=== PATIENT | female | born 1960 | race Two or more races ===

== ENCOUNTER → 2022-05-03 09:45 | Outpatient (BNVA) | payer OTHER, SELFPAY | PROVIDERS: PCP Internal Medicine; Visit Provider Nurse Practitioner Family | DX: R51.0 Headache with orthostatic component, not elsewhere classified (principal); R25.1 Tremor, unspecified; I95.1 Orthostatic hypotension; R25.9 Unspecified abnormal involuntary movements | CPT/HCPCS: 99202 ==

== ENCOUNTER → 2022-08-23 12:21 | Outpatient (BNVA) | payer OTHER, SELFPAY | PROVIDERS: PCP Internal Medicine; Visit Provider Nurse Practitioner Family | DX: G47.9 Sleep disorder, unspecified (principal); G47.19 Other hypersomnia; R06.83 Snoring; R51.0 Headache with orthostatic component, not elsewhere classified; R51.9 Headache, unspecified; R25.1 Tremor, unspecified; R25.9 Unspecified abnormal involuntary movements | CPT/HCPCS: 99212 ==

== ENCOUNTER → 2022-10-10 14:39 | Outpatient (REF) | payer OTHER, SELFPAY | LOC: HO.SL 14:39 | PROVIDERS: PCP Internal Medicine; Visit Provider Nurse Practitioner Family | DX: G47.19 Other hypersomnia (principal); G47.9 Sleep disorder, unspecified; R06.83 Snoring | CPT/HCPCS: 95806 ==

== ENCOUNTER → 2022-11-26 14:02 | Outpatient (BNVA) | payer OTHER, SELFPAY | PROVIDERS: PCP Internal Medicine; Visit Provider Nurse Practitioner Family | DX: R06.83 Snoring (principal); G47.9 Sleep disorder, unspecified; G47.19 Other hypersomnia ==

== ENCOUNTER → 2022-12-27 13:14 | Outpatient (BNVA) | payer OTHER, SELFPAY | PROVIDERS: PCP Internal Medicine; Visit Provider Nurse Practitioner Family | DX: R06.83 Snoring (principal); G47.9 Sleep disorder, unspecified; G47.19 Other hypersomnia; R25.1 Tremor, unspecified; R51.9 Headache, unspecified; I95.1 Orthostatic hypotension; R25.9 Unspecified abnormal involuntary movements ==

== ENCOUNTER 2023-04-07 13:40 | Outpatient (AMB) | payer OTHER, SELFPAY ==
[2023-04-07 14:09] VITALS: BP 112/74; PULSE 67; O2SAT 96; BMI 23.0
--- NOTE | 2023-04-07 14:09 | MHC.OFFVIS ---
Intake Vital Signs 04/07/23 14:09 Height 5 ft 4 in Weight 134 lb BMI 23.0 BP 112/74 Blood Pressure Location Rt brachial Position Sitting Pulse 67 Pulse Source Pulse Oximeter Pulse Oximetry (%) 96 Oxygen Delivery Method Room Air Intake Visit Reasons: 4m f/u Headache/Parasthesia - Confirmed Intake Note: Patient presents for 4 month follow up headache. Patient states my headaches are terrible and I'm very dizzy. Allergies metoclopramide [From Reglan] Allergy (Verified 04/07/23 14:12) hyper activity prednisone Allergy (Verified 04/07/23 14:12) Joint Pain Medication List - Last Reconciled 04/07/23 by ISAI Santos ascorbate calcium (vitamin C) 500 mg PO DAILY jbfhzih-qfqqliwqhejat-wplfwmid 250-250-65 mg (Excedrin Migraine) 1 tab PO Q4-6H PRN bismuth subsalicylate (Pepto-Bismol) 524 mg PO QID calcium [id number] no.293 260 mg calcium- 25 mcg-50 mg (Alive Calcium-Vitamin D3) tabs PO carboxymethylcellulose sodium 1% (Refresh Celluvisc) 1 drp ophthalmic (eye) BID carboxymethylcellulose-glycern 0.5-0.9 % (Refresh Optive) 1 drp ophthalmic (eye) BID-QID PRN cetirizine 10 mg PO BEDTIME PRN 30 days cholecalciferol (vitamin D3) (Vitamin D3) 10 mcg PO DAILY citalopram 20 mg PO DAILY citalopram 10 mg PO DAILY clonazepam 1 mg PO TID PRN coenzyme Q10 (Co Q-10) 400 mg PO DAILY fludrocortisone 0.1 mg PO DAILY folic acid 1 mg PO DAILY gabapentin 300 mg PO TID ipratropium bromide 1 spray intranasal DAILY PRN levothyroxine 75 mcg PO DAILY lifitegrast 5% (Xiidra) 1 drp ophthalmic (eye) BID magnesium oxide 400 mg PO BEDTIME 30 days meclizine 25 mg PO BID PRN 14 days mecobalamin (vitamin B12) mcg PO omega 2-nex-evl-fish oil 60-90-500 mg (Fish Oil) 1 cap PO DAILY ondansetron HCl 4 - 8 mg (1 - 2 x 4 mg) PO Q6-8H PRN 30 days oxcarbazepine 75 mg PO BID polyethylene glycol 3350 (Miralax) 17 grams PO DAILY riboflavin (vitamin B2) 400 mg PO DAILY 30 days rosuvastatin 10 mg PO BEDTIME sodium chloride 1,000 mg PO TID trazodone 150 mg PO BEDTIME HPI HPI Comments History of Present Illness Details 62-yr-old female presents for f/u visit. Pt denies any significant interval medical changes. DaTscan showed borderline positive results. Pt continues to wake up with headache, dizziness, lightheadedness. She notes she has always been anxious, but she is more anxious overall. She is more shaky. She has started PT- feels this is helping to get her up and moving. She has been taking meclizine 25mg- 1/4 tab most days. She is compliant w/ Fludrocortisone and sodium tabs. She has been trying to reduce her trazodone- now at 100mg qhs. [facility] Medical History (Reviewed 12/27/22 @ 13:22 by Stephanie Merrill [facility]) Anemia Depression Headache High cholesterol Kidney disease Osteoporosis Pacemaker Sleep problem Thyroid disease Surgical History S/P placement of cardiac pacemaker H/O: hysterectomy Family History Father Heart disease Mother Anxiety Depression Brother Prostate cancer History of hip replacement Family/Other Cancer Social History Alcohol intake: never Patient Tobacco Use Status: Current everyday Tobacco user Review of Systems Const All systems reviewed & are unremarkable except as noted in HPI and below Physical Exam Vital Signs: Last Vital Signs Pulse 67 04/07/23 14:09 BP 112/74 04/07/23 14:09 Pulse Ox 96 04/07/23 14:09 Oxygen Delivery Method Room Air 04/07/23 14:09 BMI result Body Mass Index 23.0 Const General: cooperative and no acute distress Orientation/consciousness: patient oriented x3 HEENT Head: Yes normocephalic Resp Effort & Inspection: normal respiratory effort and able to speak in complete sentences Neuro Other: BUE rest tremor General: patient oriented x3 and CN's II-XI intact bilaterally Cognition (Neuro): normal cognition Motor exam (neuro): 5/5 motor strength present throughout Psych Appearance: grossly normal Mental Status: mental status grossly normal Speech and movement: Normal speech and movement present Affect: normal affect Attitude: cooperative Thought process: Normal thought process present Thought content: Normal thought content present Insight: Good insight present (Psych) Judgement: Good judgement present (Psych) Assessment & Plan Assessment & Plan (1) Headache: Code(s): R51.9 - Headache, unspecified (2) Tremor: Code(s): R25.1 - Tremor, unspecified (3) Orthostatic hypotension: Code(s): I95.1 - Orthostatic hypotension Plan Trial Amitriptyline 10mg qhs- in hopes this helps headaches, dizziness- and thus may imporve anxiety. Reduce trazodone to 75mg qhs. May continue Citalopram 30mg qam. Reviewed DaTscan- borderline positive test- possibly we have ordered DaTscan very early in a neurodegenertaive process- will monitor clinically. Continue fludrocortisone 0.1mg and sodium tabs- per cardiology. Continue Gabapentin- may be helping tremor- however may be exacerbating dizziness. Pt wonders about other tremor tx options- discussed that most tremor tx's can exacerbate OH/dizziness s/s (ie BBs, dopaminergic tx, primidone) and thus would avoid starting these at this point. Continue PT. f/u in 3 months or sooner prn. Medications: New amitriptyline 10 mg PO BEDTIME 30 days 30 tabs 3RF Coding Level of Care Code Est Pt Level 4 (36285) Diagnoses Headache R51.9 Tremor R25.1 Orthostatic hypotension I95.1
== END 2023-04-07 14:53 | disposition home or self-care (01) ==
PROVIDERS: PCP Internal Medicine; Visit Provider Nurse Practitioner Family
DX: R51.9 Headache, unspecified (principal); R25.1 Tremor, unspecified; I95.1 Orthostatic hypotension
CPT/HCPCS: 99214

== ENCOUNTER → 2023-04-07 13:40 | Outpatient (BNVA) | payer OTHER, SELFPAY | PROVIDERS: PCP Internal Medicine; Visit Provider Nurse Practitioner Family | DX: R06.83 Snoring (principal); G47.9 Sleep disorder, unspecified; G47.19 Other hypersomnia; R25.1 Tremor, unspecified; R51.9 Headache, unspecified; I95.1 Orthostatic hypotension; R25.9 Unspecified abnormal involuntary movements; R42 Dizziness and giddiness ==

== ENCOUNTER 2023-08-13 14:02 | Outpatient (AMB) | payer OTHER, SELFPAY ==
--- NOTE | 2023-08-13 14:43 | A.OFFVIS_ITS ---
Intake Vital Signs 08/13/23 14:45 Height 5 ft 4 in Weight 139 lb BMI 23.9 BP 130/82 Blood Pressure Location Rt brachial Position Sitting Pulse 82 Pulse Source Pulse Oximeter Pulse Oximetry (%) 98 Oxygen Delivery Method Room Air Intake Visit Reasons: 4m f/u Headache/Parasthesia - CONF Intake Note: Patient presnts for headaches. Maricruz been having worst symptoms,much worst. Allergies metoclopramide [From Reglan] Allergy (Verified 08/13/23 14:46) hyper activity prednisone Allergy (Verified 08/13/23 14:46) Joint Pain Medication List - Last Reconciled 08/13/23 by ISAI Santos amitriptyline 10 mg PO BEDTIME 30 days ascorbate calcium (vitamin C) 500 mg PO DAILY jqyvpek-yzzjhwmiemmec-zawpcxxd 250-250-65 mg (Excedrin Migraine) 1 tab PO Q4-6H PRN bismuth subsalicylate (Pepto-Bismol) 524 mg PO QID calcium [id number]-L9-yomqvl no.293 260 mg calcium- 25 mcg-50 mg (Alive Calcium- Vitamin D3) tabs PO carboxymethylcellulose sodium 1% (Refresh Celluvisc) 1 drp ophthalmic (eye) BID carboxymethylcellulose-glycern 0.5-0.9 % (Refresh Optive) 1 drp ophthalmic (eye) BID-QID PRN cetirizine 10 mg PO BEDTIME PRN 30 days cholecalciferol (vitamin D3) (Vitamin D3) 10 mcg PO DAILY citalopram 20 mg PO DAILY citalopram 10 mg PO DAILY clonazepam 1 mg PO TID PRN coenzyme Q10 (Co Q-10) 400 mg PO DAILY fludrocortisone 0.1 mg PO DAILY folic acid 1 mg PO DAILY gabapentin 300 mg PO TID ipratropium bromide 1 spray intranasal DAILY PRN levothyroxine 75 mcg PO DAILY lifitegrast 5% (Xiidra) 1 drp ophthalmic (eye) BID magnesium oxide 400 mg PO BEDTIME 30 days meclizine 25 mg PO BID PRN 30 days mecobalamin (vitamin B12) mcg PO omega 0-aez-gyr-fish oil 60-90-500 mg (Fish Oil) 1 cap PO DAILY ondansetron HCl 4 - 8 mg (1 - 2 x 4 mg) PO Q6-8H PRN 30 days oxcarbazepine 75 mg PO BID polyethylene glycol 3350 (Miralax) 17 grams PO DAILY riboflavin (vitamin B2) 400 mg PO DAILY 30 days rosuvastatin 10 mg PO BEDTIME sodium chloride 1,000 mg PO TID trazodone 150 mg PO BEDTIME HPI HPI Comments History of Present Illness Details 63-yr-old female presents for f/u visit. She continues to have recurrent episodes occurring once a month, and lasts a week. She awakes up dizzy, lightheadedness, difficulty moving her head, tremor, chest pain/SOB and anxiety, runny nose, depression/scared/frightened, fevers/flushed, head pressure, GI upset. Will be fatigued, and sleep for 12 hrs. She is taking meclizine 1/4 tab per day and zofran- using just prn. She is compliant w/ fludrocortisone 0.1mg qd and the sodium tabs 1 tab bid. She does have h/o Eustachian tube dysfunction- this started about 1 yr ago. She denies h/o migraine. Previous HST in October 2022, was inconclusive with AHI 2.3 and O2 [place] 83%. Patient has bought a home BP cuff, but does not know how to use it. Since the last visit, Pt was advised to have home PT to assess orthostatic BP- however pt did not agree. [facility] Medical History (Updated 08/13/23 @ 20:04 by ISAI Santos) Pacemaker Thyroid disease Sleep problem Osteoporosis Kidney disease High cholesterol Headache Depression Anemia Surgical History S/P placement of cardiac pacemaker H/O: hysterectomy Family History Father Heart disease Mother Anxiety Depression Brother Prostate cancer History of hip replacement Family/Other Cancer Social History Alcohol intake: never Patient Tobacco Use Status: Current everyday Tobacco user Physical Exam Vital Signs: Last Vital Signs Pulse 82 08/13/23 14:45 BP 130/82 08/13/23 14:45 Pulse Ox 98 08/13/23 14:45 Oxygen Delivery Method Room Air 08/13/23 14:45 BMI result Body Mass Index 23.9 Const General: cooperative and no acute distress Orientation/consciousness: patient oriented x3 Resp Effort & Inspection: normal respiratory effort and able to speak in complete sentences Neuro General: patient oriented x3 Cranial nerves: Yes CN's II-XII intact bilaterally Cognition (Neuro): normal cognition Psych Appearance: grossly normal Mental Status: mental status grossly normal Speech and movement: Normal speech and movement present Affect: normal affect Attitude: cooperative Assessment & Plan Assessment & Plan (1) Orthostatic hypotension: Code(s): I95.1 - Orthostatic hypotension (2) Sick sinus syndrome: Comment: Sick sinus syndrome due to SA node dysfunction (01/2022: S/P dual-chamber pacemaker implant) Code(s): I49.5 - Sick sinus syndrome (3) Excessive daytime sleepiness: Code(s): G47.19 - Other hypersomnia (4) Sleep difficulties: Code(s): G47.9 - Sleep disorder, unspecified (5) Snoring: Code(s): R06.83 - Snoring (6) Vertigo: Code(s): R42 - Dizziness and giddiness (7) Positional headache: Code(s): R51.0 - Headache with orthostatic component, not elsewhere classified (8) Tremor: Code(s): R25.1 - Tremor, unspecified (9) Abnormal involuntary movement: Comment: oral Code(s): R25.9 - Unspecified abnormal involuntary movements (10) Migraine without aura: Code(s): G43.009 - Migraine without aura, not intractable, without status migrainosus Plan For migraine headache prevention: Continue Amitriptyline 10mg qhs- would not increase further d/t polypharmacy. Start Ajovy 225mg sc q month. Tx contraindications: BBs d/t symptomatic orthostatic hypotension. For acute migraine headache treatment: Start Ubrelvy 100 mg tab p.r.n. at onset of migraine episode, may repeat x1. M ax of 200 mg per day. Acute treatment contraindications: All triptans due to history of sick sinus syndrome. ? Reviewed Jan 2023 DaTscan- borderline positive test- possibly we have ordered DaTscan very early in a neurodegenertaive process- will monitor clinically. Patient advised to undergo in-lab sleep study to assess for sleep apnea, periodic limb movements of sleep, parasomnias. Will request Nephrology consult for eval for 24 hour ABP monitoring. Question if there is a neurogenic come to her frequent orthostatic lightheadedness. Continue fludrocortisone 0.1mg and sodium tabs- per cardiology. Continue Gabapentin- may be helping tremor- however may be exacerbating dizziness. Future considerations: Doxydopa. Pt wonders about other tremor tx options- discussed that most tremor tx's can e xacerbate OH/dizziness s/s (ie BBs, dopaminergic tx, primidone) and thus would avoid starting these at this point. Continue PT. ? f/u in 3 months or sooner prn. Orders: Orders RT PSG in-lab sleep study Today G47.19 - Other hypersomnia, G47.9 - Sleep disorder, unspecified, R06.83 - Snoring, R25.1 - Tremor, unspecified, Z95.0 - Presence of cardiac pacemaker Referrals Nephrology Referral I49.5 - Sick sinus syndrome, I95.1 - Orthostatic hypotension Medications: New ubrogepant (Ubrelvy) take at onset of migraine, may repeat in 2hrs 50 - 100 mg (0.5 - 1 x 100 mg) PO ONCE PRN 16 tabs 3RF migraine headache 30 days fremanezumab-vfrm (Ajovy) administer 225mg sc q month 225 mg (1.5 mL) subcut ONCE 1.5 mL 6RF 30 days Coding Level of Care Code Est Pt Level 4 (40672) Diagnoses Orthostatic hypotension I95.1 Sick sinus syndrome I49.5 Excessive daytime sleepiness G47.19 Sleep difficulties G47.9 Snoring R06.83 Vertigo R42 Positional headache R51.0 Tremor R25.1 Abnormal involuntary movement R25.9 Migraine without aura G43.009
[2023-08-13 14:45] VITALS: BP 130/82; PULSE 82; O2SAT 98; BMI 23.9
== END 2023-08-13 15:36 | disposition home or self-care (01) ==
PROVIDERS: PCP Internal Medicine; Visit Provider Nurse Practitioner Family
DX: I95.1 Orthostatic hypotension (principal); I49.5 Sick sinus syndrome; G47.19 Other hypersomnia; G47.9 Sleep disorder, unspecified; R06.83 Snoring; R42 Dizziness and giddiness; R51.0 Headache with orthostatic component, not elsewhere classified; R25.1 Tremor, unspecified; R25.9 Unspecified abnormal involuntary movements; G43.009 Migraine without aura, not intractable, without status migrainosus
CPT/HCPCS: 99214

== ENCOUNTER → 2023-08-13 14:02 | Outpatient (BNVA) | payer OTHER, SELFPAY | PROVIDERS: PCP Internal Medicine; Visit Provider Nurse Practitioner Family | DX: R06.83 Snoring (principal); G47.9 Sleep disorder, unspecified; G47.19 Other hypersomnia; R25.1 Tremor, unspecified; R51.9 Headache, unspecified; I95.1 Orthostatic hypotension; R25.9 Unspecified abnormal involuntary movements; R42 Dizziness and giddiness ==

== ENCOUNTER → 2023-09-08 19:30 | Outpatient (REF) | payer OTHER, SELFPAY | LOC: HO.SL 19:30 | PROVIDERS: PCP Internal Medicine; Visit Provider Nurse Practitioner Family | DX: G47.19 Other hypersomnia (principal); R06.83 Snoring; R25.1 Tremor, unspecified; Z95.0 Presence of cardiac pacemaker; G47.9 Sleep disorder, unspecified | CPT/HCPCS: 95810 ==

== ENCOUNTER → 2023-09-08 23:56 | Outpatient (BNV) | payer OTHER, SELFPAY | PROVIDERS: PCP Internal Medicine; Visit Provider Psychiatry & Neurology Neurology | DX: R06.83 Snoring (principal) | CPT/HCPCS: 95810 ==

== ENCOUNTER 2023-11-04 13:55 | Outpatient (AMB) | payer OTHER, SELFPAY ==
[2023-11-04 14:34] VITALS: BP 100/60; PULSE 57; O2SAT 96; BMI 23.8
--- NOTE | 2023-11-04 14:34 | HO.NEPHOV ---
Vital Signs 11/04/23 14:34 Height 5 ft 4 in Weight 138 lb 8 oz BMI 23.8 BP 100/60 Blood Pressure Location Lt brachial Position Sitting Pulse 57 Pulse Source Pulse Oximeter Pulse Oximetry (%) 96 Oxygen Delivery Method Room Air Intake Visit Reasons: Dx-Orthastatic Hypotension ? 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 She is a very poor historian. She has been having tiredness for a long time with dizziness for which she has seen a associate store director as well as multiple physicians. She had a pacemaker insertion which has not helped her symptoms. She is on 1 g 3 times a day sodium chloride with the fludrocortisone for reasons unclear to patient. She apparently had tried midodrine in the past which has been discontinued, the reasons of which is unclear. She does not have any edema. She likes to be confined at home and does not like coming for appointments. Her mentation is at baseline. She has no history of hypoglycemia, hyperkalemia or recent hyponatremia. She has history of depression. She has history of mild CKD for some time with a serum creatinine of 1.1. She denies epistaxis, recurrent sinusitis, hemoptysis, hematuria, nephrolithiasis, dysuria, pedal edema. [facility] Medical History (Updated 11/04/23 @ 17:44 by Sterling Arana MD) Pacemaker Thyroid disease Sleep problem Osteoporosis Kidney disease High cholesterol Headache Depression Anemia Surgical History S/P placement of cardiac pacemaker H/O: hysterectomy Family History Father Heart disease Mother Anxiety Depression Brother Prostate cancer History of hip replacement Family/Other Cancer Social History Alcohol intake: never Patient Tobacco Use Status: Current everyday Tobacco user Physical Exam Vital Signs: Last Vital Signs Pulse 57 11/04/23 14:34 BP 130/78 11/04/23 14:34 Pulse Ox 96 11/04/23 14:34 Oxygen Delivery Method Room Air 11/04/23 14:34 BMI result Body Mass Index 23.8 Const General: comfortable and no acute distress Orientation/consciousness: patient oriented x3 Eyes EOM: EOMs intact bilaterally Neck Neck: Yes supple Resp Auscultation: diminished lung sounds Cardio Jugular venous distension: no JVD GI Palpation (GI): Soft to palpation Skin General skin exam: no rashes or lesions noted Neuro General: patient oriented x3 and moves all extremities Extrem General: Yes no pedal edema Results Reviewed Nephrology Results: No Data to Display Assessment & Plan Assessment & Plan (1) Orthostatic hypotension: Code(s): I95.1 - Orthostatic hypotension Category: Medical (2) CKD stage 3a, GFR 45-59 ml/min: Code(s): N18.31 - Chronic kidney disease, stage 3a Category: Medical Plan Alicia has mild CKD for some time. Her renal functions are stable. She most likely had reduced renal perfusion due to low blood pressures with recurrent tubular injury which might have led to loss of GFR. She had a blood pressure 100/60 sitting with a no orthostatic drop in the office today. She is currently on fludrocortisone and sodium chloride tablets. She is not clinically hypervolemic. She is not sure why she is on sodium chloride tablets and fludrocortisone but I presume it was given for orthostatic hypotension, unless the salt tablets were given for history of hyponatremia which I could not make out nor patient was aware. We could have considered starting and maximizing midodrine and Florinef with time and discontinue sodium chloride tablets unless it is given for any other different indication. She was very clear that she does not want too many physicians investigating her for this and she was very clear that she does not want 24 hour ambulatory blood pressure monitor. I did not make any medication changes but rather encouraged her to follow-up closely with neurology and her PCP. Thank you for the opportunity to be part of her clinical care Coding Level of Care Code New Pt Level 4 (66858) Diagnoses Orthostatic hypotension I95.1 CKD stage 3a, GFR 45-59 ml/min N18.31
== END 2023-11-04 15:12 | disposition home or self-care (01) ==
PROVIDERS: PCP Internal Medicine; Visit Provider Internal Medicine Nephrology
DX: I95.1 Orthostatic hypotension (principal); N18.31 Chronic kidney disease, stage 3a
CPT/HCPCS: 99204

== ENCOUNTER → 2023-11-04 13:55 | Outpatient (BNVA) | payer OTHER, SELFPAY | PROVIDERS: PCP Internal Medicine; Visit Provider Internal Medicine Nephrology ==

== ENCOUNTER 2023-11-19 14:37 | Outpatient (AMB) | payer OTHER, SELFPAY ==
--- NOTE | 2023-11-19 14:57 | MHC.OFFVIS ---
Vital Signs 11/19/23 14:59 Height 5 ft 4 in Weight 138 lb BMI 23.7 BP 110/74 Blood Pressure Location Rt brachial Position Sitting Pulse 67 Pulse Source Pulse Oximeter Pulse Oximetry (%) 98 Oxygen Delivery Method Room Air Intake Visit Reasons: 3m follow up Headache/Parasthesia-Conf Intake Note: Patient presents for 3 month follow up headache/parasthesia. patient still having terrible dizziness and headaches,nausea and hand shakes feeling weak and difficulty breathing. Allergies metoclopramide [From Reglan] Allergy (Verified 11/19/23 15:08) hyper activity prednisone Allergy (Verified 11/19/23 15:08) Joint Pain Medication List - Last Reconciled 11/19/23 by ISAI Santos ascorbate calcium (vitamin C) 500 mg PO DAILY momenna-kwoobxlccchho-betygnoa 250-250-65 mg (Excedrin Migraine) 1 tab PO Q4-6H PRN calcium gmqe-X1-vnfphd no.293 260 mg calcium- 25 mcg-50 mg (Alive Calcium-Vitamin D3) tabs PO cholecalciferol (vitamin D3) (Vitamin D3) 10 mcg PO DAILY citalopram 30 mg PO DAILY clonazepam 1 mg PO TID PRN coenzyme Q10 (Co Q-10) 400 mg PO DAILY fludrocortisone 0.1 mg PO DAILY folic acid 1 mg PO DAILY fremanezumab-vfrm (Ajovy) 225 mg (1.5 mL) subcut ONCE 30 days gabapentin 300 mg PO TID levothyroxine 75 mcg PO DAILY lifitegrast 5% (Xiidra) 1 drp ophthalmic (eye) BID meclizine 25 mg PO BID PRN 30 days mecobalamin (vitamin B12) mcg PO omega 5-hvz-ych-fish oil 60-90-500 mg (Fish Oil) 1 cap PO DAILY ondansetron HCl 4 - 8 mg (1 - 2 x 4 mg) PO Q6-8H PRN 30 days oxcarbazepine 75 mg PO BID riboflavin (vitamin B2) 400 mg PO DAILY 30 days rosuvastatin 10 mg PO BEDTIME sodium chloride 1,000 mg PO TID trazodone 100 mg PO BID ubrogepant (Ubrelvy) 50 - 100 mg (0.5 - 1 x 100 mg) PO ONCE PRN 30 days HPI Comments Details: 63-yr-old female presents for f/u visit. Pt had renal consult, however she declined to do 24 hr BP monitor. She states she is not taking Fludrocortisone consistently- feels it makes her tremors worse. She continues to have BUE tremor. Would like to start tx for her tremors. States is compliant w/ sodium tabs- does not think these worsen/cause nausea. However, she often feels nauseous. She has an appt w/ a new refining engineer tomorrow. In-lab PSG did not show sleep apnea- but pt did not sleep well during the study. She continues to lay down and sleep x's 12 hours a day. She continues to have frequent migraine. She stopped Amitriptyline- states did not tolerate, maybe it caused more anxiety. She has not started Ajovy- has been approved but [facility] did not have it in stock. Will resend. She feels her mood is depressed. She often sits on the floor- anxious and crying. She is f/b psychiatry. [facility] Medical History (Updated 11/04/23 @ 17:44 by Sterling Arana MD) Pacemaker Thyroid disease Sleep problem Osteoporosis Kidney disease High cholesterol Headache Depression Anemia Surgical History S/P placement of cardiac pacemaker H/O: hysterectomy Family History Father Heart disease Mother Anxiety Depression Brother Prostate cancer History of hip replacement Family/Other Cancer Social History Alcohol intake: never Patient Tobacco Use Status: Current everyday Tobacco user Physical Exam Vital Signs: Last Vital Signs Pulse 67 11/19/23 14:59 BP 110/74 11/19/23 14:59 Pulse Ox 98 11/19/23 14:59 Oxygen Delivery Method Room Air 11/19/23 14:59 BMI result Body Mass Index 23.7 Const General: cooperative and no acute distress Orientation/consciousness: patient oriented x3 Resp Effort & Inspection: normal respiratory effort and able to speak in complete sentences Neuro Other: RUE rest tremor. General: patient oriented x3 Cranial nerves: Yes CN's II-XII intact bilaterally Cognition (Neuro): normal cognition Psych Appearance: grossly normal Mental Status: mental status grossly normal Affect: normal affect Attitude: cooperative Assessment & Plan Assessment & Plan (1) Migraine without aura: Code(s): G43.009 - Migraine without aura, not intractable, without status migrainosus Category: Medical (2) Orthostatic hypotension: Code(s): I95.1 - Orthostatic hypotension Category: Medical (3) Tremor: Code(s): R25.1 - Tremor, unspecified Category: Medical Plan For tremor: Reviewed Jan 2023 DaTscan- borderline positive test- possibly we have ordered DaTscan very early in a neurodegenertaive process- will monitor clinically. Reviewed undergo in-lab sleep study- no evidence for sleep apnea, though poor sleep. Reviewed Nephrology consult- pt declined 24 hr BP monitor. Continue sodium tabs- per cardiology. Pt not consistently taking Fludrocortisone- states worsens tremors. Previously tried Midodrine- states was not tolertaed. Gabapnentin does not seem to be helping tremor. Pt would like to start medication tx for tremor. Discussed that most tremor tx's can exacerbate OH/dizziness s/s (ie BBs, dopaminergic tx, primidone) and thus would avoid starting these at this point. Review of pt's cardiology notes/records indicates last tilt table test showed OH w/o compnsatory HR elvation, which raises suspicion for neurogenic OH component to pt's OH. We can consider trying Droxidopa 100mg tid and CD-LD 25-100mg 1/2 tab bid. However, would appreciate cardiology's input before starting this. Note written to share w/ refining engineer tomorrow. For migraine headache prevention: Pt stopped Amitriptyline 10mg qhs. Start Ajovy 225mg sc q month- has been approved- order resent to pharmacy. Previous tx trials: Amitriptyline- pt states caused anxiety. Tx contraindications: BBs d/t symptomatic orthostatic hypotension. ? For acute migraine headache treatment: Will f/u on status of prior auth for Ubrelvy 100 mg tab p.r.n. at onset of migraine episode, may repeat x1. Max of 200 mg per day. Acute treatment contraindications: All triptans due to history of sick sinus syndrome. ? ? f/u in 3 months or sooner prn. Coding Level of Care Code Est Pt Level 4 (58787) Complex EM visit Add On G2211 Diagnoses Migraine without aura G43.009 Orthostatic hypotension I95.1 Tremor R25.1
[2023-11-19 14:59] VITALS: BP 110/74; PULSE 67; O2SAT 98; BMI 23.7
== END 2023-11-19 16:09 | disposition home or self-care (01) ==
PROVIDERS: PCP Internal Medicine; Visit Provider Nurse Practitioner Family
DX: G43.009 Migraine without aura, not intractable, without status migrainosus (principal); I95.1 Orthostatic hypotension; R25.1 Tremor, unspecified
CPT/HCPCS: 99214; G2211

== ENCOUNTER → 2023-11-19 14:37 | Outpatient (BNVA) | payer OTHER, SELFPAY | PROVIDERS: PCP Internal Medicine; Visit Provider Nurse Practitioner Family | DX: R06.83 Snoring (principal); G47.9 Sleep disorder, unspecified; G47.19 Other hypersomnia; R25.1 Tremor, unspecified; R51.9 Headache, unspecified; I95.1 Orthostatic hypotension; R25.9 Unspecified abnormal involuntary movements; R42 Dizziness and giddiness ==

== ENCOUNTER 2024-11-08 14:38 | Outpatient (AMB) | payer MEDICAID, SELFPAY ==
--- OUTSIDE RECORDS SUMMARY | 2024-11-08 14:41 | XMS_ITS | Data Portability ---
Author Organization FATOU Berry s, [address] Address [address] [place] [address] Care Team Providers Care Breaker Machine Tender Name Role Phone [facility] Primary Care Pr ovider Assessment No assessment recorded. Plan of Treatment Reminders Order Date Submit Date Provider Last Modified By Organization Details Last Modified Time Details Appointments None recorded. Lab SARS CoV 2 RNA (COVID-19), QL, cloth bolt bander-PCR, respiratory specimen 2022 023 KISSIMMEE [facility], [address] [place] [address], [place], [address], 3 18:05:52 urinalysis, dipstick 2022 023 [address], [address] [place], [address], 3 18:58:06 SARS CoV 2 (COVID-19) Ag, QL, IA, upper respiratory specimen 2022 023 [address], [address] [place], [address], 3 18:58:08 rapid flu (A+B) 2022 023 [email or web address] [address], [address] [place], [address], 3 19:06:24 culture, urine 2022 023 KISSIMMEE [facility] ([place]), [address] [facility], [place], [address], 3 06:06:22 Referral None recorded. Procedures None recorded. Surgeries None recorded. Imaging None recorded. Medication Orders cephalexin 500 mg capsule 2023 024 KISSIMMEE [id number], [address] [place] [address], [id number], 4 09:38:15 Florastor 250 mg capsule 2022 023 [email or web address] 2 [facility] #[id number], [address] [place] [address], [address], 4 09:14:37 Imodium Multi-Sympt om Relief 2 mg-125 mg tablet 2022 023 [id number] [address] [place] [address], [address], 4 09:16:25 ondansetron 4 mg disintegrat ing tablet 2022 023 [id number] [address] [place] [address], [address], 3 18:58:08 Patient TargetsNo targets recorded. Patient Instructions Encounter Date Encounter Id Patient Instructions Last Modified By Organization Details Last Modified Time 05/09/2023 [id number] diarrhea: care instructions [email or web address] Not available 05/09/2023 18:58:03 bland diet [email or web address] Not available 05/09 18:58:03 diarrhea: care instructions Not available 05/09/2023 18:58:03 Based on your presentation and exam you are being diagnosed with Diarrhea. Diarrhea can be caused by multiple things - virus, bacterial, exposure to food that is not tolerated. Diarrhea caused by infections usually results from eating or drinking contaminated food or water. Signs and symptoms of infection usually begin 12 hours to four days after exposure and resolve within three to seven days. Most cases of acute diarrhea are due to infections and are self-limited. Acute ? 14 days or fewer in duration Persistent diarrhea ? more than 14 but fewer than 30 days in duration Chronic ? more than 30 days in duration Diarrhea not related to an infection can occur as a side effect of antibiotics or other drugs, food allergies, gastrointestinal diseases such as inflammatory bowel disease, and other diseases. The following are my recommendations to help with your symptoms: 1. Drink adequate fluids ? If you have mild to moderate diarrhea, you can usually be treated at home by drinking extra fluids. The fluids should contain water, salt, and sugar. Avoid Gatorade however, but Pedialyte is ok. 2. Diet ? There is no particular food or group of foods that is best while you have diarrhea. However, adequate nutrition is important during an episode of acute diarrhea. If you do not have an appetite, you can drink only liquids for a short period of time. Boiled starches and cereals (eg, potatoes, noodles, rice, wheat, and oats) with salt are recommended if you have watery diarrhea; crackers, bananas, soup, and boiled vegetables may also be eaten. 3. Preventing spread ? Adults with diarrhea should be cautious to avoid spreading infection to family, friends, and co-workers. You are considered infectious for as long as diarrhea continues. Microorganisms causing diarrhea are spread from hand to mouth. 4. Frequent Hand Washing Antibiotics are not needed in most cases of acute diarrhea, and they can cause further complications if used inappropriately. Antibiotics may be recommended in certain situations. If diarrhea continues - Stool Culture would be indicated. You need to be seen again if you develop any of the following and the ER may be needed for IV fluids. 1. More than eight loose stools per day lasting longer than 5 days. 2. Fever 3. Bloody stool 4. Dehydration 5. Symptoms that continue for more than one week 6. A weakened immune system 7. You require hospitalization Thank you for using [facility] today, Please feel free to contact our office if you have any questions or concerns. [email or web address] Not available 05/09/2023 18:58:45 05/13/2023 [id number] diarrhea: care instructions [email or web address] Not available 05/13/2023 17:17:31 viral infections : care instructions [email or web address] Not available 05/13/2023 17:17:31 Since your diarr hea is improving - no change in your current treatment is indicated. Rest. Drink plenty of fluids. See printed instructions. Follow-up as soon as possible with your doctor. You will be contacted when your lab report returns. Seek Emergency Medical evaluation for any worsening symptoms, particularly for any worsening pain, intractable vomiting, blood in stool, high fever, shaking chills, chest pain, shortness of breath. [email or web address] Not available 05/14/2023 20:14:47 04/30/2024 [id number] cellulitis: care instructions [email or web address] Not available 04/30/2024 09:38:06 Reason for Referral None Reported. Results Created Date Observation Date Name Description Value Unit Range Abnormal Flag Note LastModifiedBy Organization Detail LastModifiedTime 05/09/2005/12/2023 URINE CULTU RE, BILLI NE urine culture, routine FINAL REPORT Not Available [facility] ([facility]) [address] [facility], [place], [address], 05/12/2023 06:06:22 05/09/2005/12/2023 URINE CULTU RE, BILLI NE result 1 COMMEN T Cultu re shows less than 10,00 0 colon y formi ng units of bacte mirtha per jon liter of urine . This colon y count is not gener ally consi dered to be clini jose signi fican t. Not Available [facility] ([facility]) [address] [facility], [place], [address], 05/12/2023 06:06:22 05/09/2005/09/2023 rapid flu (A+B) Unknown Analyte negati ve Not Available [address] [place], [address], 05/09/2023 18:50:34 05/09/20 23 05/09/2023 rapid flu (A+B) Unknown Analyte negati ve Not Available [address] [place], [address], 05/09/2023 18:50:34 05/09/2005/09/2023 urina lysis , dipst ick Unknown Analyte Normal = light yellow Not Available [address] [place], [address], 05/09/2023 18:25:41 05/09/2005/09/2023 urina lysis , dipst ick Unknown Analyte Yellow Not Available [id number] [place] [address] [address] [place], [address], 05/09/2023 18:25:41 05/09/2005/09/2023 urina lysis , dipst ick Unknown Analyte Normal = clear Not Available [address] [place], [address], 05/09/2023 18:25:41 05/09/2005/09/2023 urina lysis , dipst ick Unknown Analyte Clear Not Available [id number] [place] [address] [address] [place], [address], 05/09/2023 18:25:41 05/09/2005/09/2023 urina lysis , dipst ick Unknown Analyte Normal = negati ve Not Available [address] [place], [address], 05/09/2023 18:25:41 05/09/2005/09/2023 urina lysis , dipst ick Unknown Analyte Negati ve Not Available [address] [place], [address], 05/09/2023 18:25:41 05/09/2005/09/2023 urina lysis , dipst ick Unknown Analyte Normal = Negati ve Not Available [address] [place], [address], 05/09/2023 18:25:41 05/09/2005/09/2023 urina lysis , dipst ick Unknown Analyte Negati ve Not Available [address] [place], [address], 05/09/2023 18:25:41 05/09/2005/09/2023 urina lysis , dipst ick Unknown Analyte Normal = Negati ve Not Available [address] [place], [address], 05/09/2023 18:25:41 05/09/2005/09/2023 urina lysis , dipst ick Unknown Analyte Negati ve Not Available [address] [place], [address], 05/09/2023 18:25:41 05/09/2005/09/2023 urina lysis , dipst ick Unknown Analyte Normal = 1.010, 1.015, 1.020 Not Available [address] [place], [address], 05/09/2023 18:25:41 05/09/2005/09/2023 urina lysis , dipst ick Unknown Analyte <=1.00 5 Not Available [address] [place], [address], 05/09/2023 18:25:41 05/09/2005/09/2023 urina lysis , dipst ick Unknown Analyte Normal = Negati ve Not Available [address] [place], [address], 05/09/2023 18:25:41 05/09/20 23 05/09/2023 urina lysis , dipst ick Unknown Analyte Trace- intact Not Available [address] [place], [address], 05/09/2023 18:25:41 05/09/2005/09/2023 urina lysis , dipst ick Unknown Analyte Normal = 6.5, 7.0, 7.5, 8.0 Not Available [address] [place], [address], 05/09/2023 18:25:41 05/09/2005/09/2023 urina lysis , dipst ick Unknown Analyte 6.0 Not Available [facility] [address] [place], [address], 05/09/2023 18:25:41 05/09/2005/09/2023 urina lysis , dipst ick Unknown Analyte Normal = Negati ve Not Available [address] [place], [address], 05/09/2023 18:25:41 05/09/2005/09/2023 urina lysis , dipst ick Unknown Analyte Negati ve Not Available [address] [place], [address], 05/09/2023 18:25:41 05/09/2005/09/2023 urina lysis , dipst ick Unknown Analyte Normal = 0.2, 1.0 Not Available [address] [place], [address], 05/09/2023 18:25:41 05/09/2005/09/2023 urina lysis , dipst ick Unknown Analyte 0.2 E.U./d L Not Available [address] [place], [address], 05/09/2023 18:25:41 05/09/2005/09/2023 urina lysis , dipst ick Unknown Analyte Normal = Negati ve Not Available [address] [place], [address], 05/09/2023 18:25:41 05/09/20 23 05/09/2023 urina lysis , dipst ick Unknown Analyte Negati ve Not Available [address] [place], [address], 05/09/2023 18:25:41 05/09/2005/09/2023 urina lysis , dipst ick Unknown Analyte Normal = Negati ve Not Available [address] [place], [address], 05/09/2023 18:25:41 05/09/2005/09/2023 urina lysis , dipst ick Unknown Analyte Negati ve Not Available [address] [place], [address], 05/09/2023 18:25:41 05/09/20 23 05/09/2023 SARS CoV 2 (COVI D-19) Ag, QL, IA, upper respi rator y speci men Unknown Analyte negati ve Not Available [address] [place], [address], 05/09/2023 18:25:52 05/13/20 23 05/14/2023 SARS- COV-2 , TRAMAINE sars-cov-2, TRAMAINE NOT DETECT ED not detect ed This nucle ic acid ampli ficat ion test was devel oped and its perfo rmanc e nabor cteri stics deter mined by [facility]. Nucle ic acid ampli ficat ion tests inclu de RT-PC R and TMA. This test has not been FDA clear ed or appro mario. This test has been autho rized by FDA under an Emerg ency Use Autho rizat ion (EUA) . This test is only autho rized for the durat ion of time the decla ratio n that circu mstan baltazar exist justi fying the autho rizat ion of the emerg ency use of in vitro diagn ostic tests for detec tion of SARS- CoV-2 virus and/o r diagn osis of COVID -19 infec tion under secti on 564(b )(1) of the Act, 21 U.S.C . 360bb b-3(b ) (1), unles s the autho rizat ion is termi nated or revok ed soone r. When diagn ostic testi ng is negat сергей, the possi bilit y of a false negat сергей resul t shoul d be consi dered in the dusty xt of a patie nt's recen t expos ures and the prese nce of clini marlo signs and sympt oms consi stent with COVID -19. An indiv idual witho ut sympt oms of COVID -19 and who is not kellie ing SARS- CoV-2 virus would expec t to have a negat сергей (not detec laurel) resul t in this assay . Not Available [facility]) [address] [facility], [place], [address], 05/14/2023 18:05:52 Result Notes None recorded. Problems Name Problem SNOMED Code Status Onset Date Resolution Date Notes Provider Name and Address Organization Details Recorded Time Lactose factor 06735405 Active 2022 Kate hamm, PA - [facility] 18:31:17 Anxiety 87123122 Active 2022 Kate hamm, PA - [facility] 18:31:30 Osteoporosis 57427326 Active 2022 Kate hamm, PA - [facility] 18:31:47 Depressive disorder 78734203 Active 2022 Kate hamm, PA - [facility] 18:31:57 Irritable bowel syndrome 39526282 Active 2022 Kate hamm, PA - [facility] 3 18:32:12 Kidney disease 22467343 Active 2022 Kate hamm, PA - [facility] 3 18:32:24 Hypothyroidism 20311471 Active 2022 Kate hamm, PA - [facility] 3 18:32:44 Arthritis 5928956 Active 2022 Kate hamm, PA - [facility] 3 18:33:14 Hyperlipidemia 09751134 Active 2022 Kate hamm, PA - [facility] 3 18:33:27 Problem Notes None recorded. Procedures Surgical History Date Name Laterality Status Provider Name and Address Organization Details Recorded Time 10/22/19 implantation of cardiac pacemaker franklyn Dhillon PA - [facility] 04/30/2024 09:18:53 Imaging Results None recorded. Procedure Notes None recorded. Medical Equipment None Reported. Allergies Allergen ID Allergen Name Allergen Category Reaction Reaction Severity Criticality Documentation Date Start Date Code Code System Note Provider Name and Address Organization Details Recorded Time 104367 Reglan medicatio n other Not available Not available 05/09/2023 9230 RxNorm Hyper Yeni hamm, PA - [facility] 4 09:14:02 259443 prednison e medicatio n myalgias (muscle pain) Not available Not available 05/09/2023 8640 RxNorm Kate hamm, PA - [facility] 3 18:24:27 Medications Name Sig Start Date Stop Date Status Note LastModified by Organization Details LastModified Time magnesium oxide 400 (240 mg) mg tabs active Not Available Not Available Not Available oxcarbazepi ne 150 mg tablet TAKE 1/2 TABLET TWICE A DAY BY MOUTH active Not Available Not Available No t Available cetirizine 10 mg tablet TAKE 1 TABLET BY MOUTH BEDTIME NEEDED FOR ALLERGY SYMPTOMS 05/09 completed Not Available Not Available Not Available citalopram 10 mg tablet TAKE 1 TABLET BY MOUTH ONCE A DAY FOR TOTAL DOSE OF 30MG DAILY active Not Available Not Available No t Available ondansetron HCl 4 mg tablet TAKE 1 TO 2 TABLETS BY MOUTH EVERY 6 TO 8 HOURS NEEDED FOR NAUSEA AND VOMITING FOR 30 DAYS 05/09 completed Not Available Not Available Not Available clonazepam 1 mg tablet TAKE 1 TABLET BY MOUTH THREE TIMES A DAY NEEDED active Not Available Not Available No t Available levothyroxi ne 75 mcg tablet TAKE 1 TABLET BY MOUTH EVERY DAY active Not Available Not Available No t Available citalopram 20 mg tablet TAKE 1 TABLET BY MOUTH EVERY DAY active Not Available Not Available No t Available magnesium oxide 400 mg (241.3 mg magnesium) tablet TAKE 1 TABLET BY MOUTH AT BEDTIME FOR 30 DAYS MAY HOLD FOR LOOSE STOOLS 05/09 completed Not Available Not Available Not Available trazodone 100 mg tablet TAKE 1 TO 2 TABLETS BY MOUTH AT BEDTIME 05/09 completed Not Available Not Available Not Available amitriptyli ne 10 mg tablet TAKE 1 TABLET BY MOUTH EVERYDAY AT BEDTIME 05/09 completed Not Available Not Available Not Available meclizine 25 mg tablet TAKE 1 TABLET BY MOUTH 2 TIMES A DAY NEEDED FOR DIZZINESS FOR 14 DAYS active Not Available Not Available No t Available cephalexin 500 mg capsule Take 1 capsule every 12 hours by oral route for 10 days. 2023 active Not Available Not Available Not Avai lable gabapentin 300 mg capsule TAKE 1 CAPSULE BY MOUTH THREE TIMES A DAY active Not Available Not Available No t Available ondansetron 4 mg disintegrat ing tablet PLACE 1 TABLET ON THE TONGUE AND ALLOW TO DISSOLVE EVERY 6-8 HOURS NEEDED active Not Available Not Available No t Available fludrocorti sone 0.1 mg tablet TAKE 1 TABLET BY MOUTH EVERY DAY 05/09 completed Not Available Not Available Not Available ipratropium bromide 21 mcg (0.03 %) nasal spray USE 1 SPRAY INTO EACH NOSTRIL DAILY AT BEDTIME NEEDED FOR EAR CONGSTION 05/09 completed Not Available Not Available Not Available rosuvastati n 10 mg tablet TAKE 1 TABLET BY MOUTH EVERYDAY AT BEDTIME active Not Available Not Available No t Available Florastor 250 mg capsule Take 1 capsule twice a day by oral route for 14 days. 04/30 completed Not Available Not Available Not Available sodium chloride 1,000 mg soluble tablet TAKE 1 TABLET BY MOUTH THREE TIMES DAILY active Not Available Not Available No t Available Imodium Multi-Sympt om Relief 2 mg-125 mg tablet 2 tabs by mouth x 1, then 1 tab by mouth after each loose stool; Max: 4 tabs per day. 04/30 completed Not Available Not Available Not Available riboflavin (vitamin B2) 400 mg tablet TAKE 1 TABLET BY MOUTH EVERY DAY active Not Available Not Available No t Available Xiidra 5 % eye drops in a dropperette INSTILL 1 DROP INTO BOTH EYES TWICE A DAY active Not Available Not Available No t Available Vitals Date Recorded Body height Body mass index (BMI) Body weight Oxygen saturation Oxygen saturation in Arterial blood by Pulse oximetry Heart rate Respiratory rate Body temperature Systolic blood pressure Diastolic blood pressure Provider Name and Address Organization Details Last Updated DateTime 3 162.56 cm 22.7 kg/m2 51235.1 9 g 97 % 97 % 61 /min 19 /min 97.4 [degF] 118 mm[Hg] 63 mm[Hg] Kate Spears PA - [facility] 3 18:26:19 Date Recorded Body height Body mass index (BMI) Body weight Body temperature Heart rate Respiratory rate Oxygen saturation Oxygen saturation in Arterial blood by Pulse oximetry Systolic blood pressure Diastolic blood pressure Provider Name and Address Organization Details Last Updated DateTime 3 162.56 cm 22.7 kg/m2 37569.1 9 g 97.8 [degF] 50 /min 16 /min 98 % 98 % 126 mm[Hg] 72 mm[Hg] Gretchen Buenrostro PA - [facility] 3 16:38:26 Date Recorded Body height Body mass index (BMI) Body weight Body temperature Heart rate Oxygen saturation Oxygen saturation in Arterial blood by Pulse oximetry Respiratory rate Systolic blood pressure Diastolic blood pressure Provider Name and Address Organization Details Last Updated DateTime 4 162.56 cm 23.2 kg/m2 70288.9 7 g 98.1 [degF] 51 /min 97 % 97 % 16 /min 102 mm[Hg] 53 mm[Hg] Yeni Dhillon PA - [facility] 4 09:23:55 Social History Question Answer Notes LastModified by Organizat ion Details LastModified Time Tobacco Smoking Status Current Every Day Smoker Kate hamm PA - [facility] 05/09/2023 18:34:53 What Is The Highest Grade Or Level Of School You Have Completed Or The Highest Degree You Have Received? [id number] [email or web address] Information not available 05/09/2023 Have You Had A Flu Shot This Season? No [email or web address] Information not available 04/30/2024 If No, Would You Like A Flu Shot Today? No Information not available 05/09/2023 Have You Had Direct Contact, Or Contact During Intimacy, With Monkeypox Rash, Scabs, Or Body Fluids From A Person With Monkeypox? No Information not available 05/09/2023 What Was The Date Of Your Most Recent Tobacco Screening? 04/30/2024 [email or web address] Information not available 04/30/2024 What Is Your Current Pack Years? [email or web address] Information not available 05/09/2023 What Is Your Relationship Status? [email or web address] Information not available 05/09/2023 How Much Tobacco Do You Smoke? 1 PPW [email or web address] Information not available 05/09/2023 Have You Recently Traveled Abroad? No [email or web address] Information not available 05/09/2023 Are You Currently In School? No [email or web address] Information not available 05/09/2023 Sex: Unknown Functional Status Question Answer Note LastModified by Organizat ion Details LastModified Time Do you use any illicit or recreational drugs? No [email or web address] Information not available 05/09/2023 Do you or have you ever used any other forms of tobacco or nicotine? No [email or web address] Information not available 05/09/2023 What is your level of alcohol consumption? None [email or web address] Information not available 05/09/2023 Are you currently employed? No Information not available 05/09/2023 Mental Status None recorded. Family History Relationship Description Onset Age of this Age Resolved Age Notes LastModified by Organization Details LastModified Time Father No current problems or disability [email or web address] Not available 05/09 18:33:46 Mother No current problems or disability [email or web address] Not available 05/09 18:33:46 Medical History No medical history recorded. Gynecological History Statement/Question Response Is there any chance of ? No LMP N/A Obstetrics History GPAL:G 0 P 0 0 0 0 Immunizations Vaccine Type Date Status Note Provider Nam e and Address Organization Details Recorded Time Influenza, MDCK, quadrivalent, PF 8 completed Kate Psears null, PA - [facility] 05/09/2023 18:22:37 Influenza, MDCK, quadrivalent, PF 7 completed Kate Spears null, PA - [facility] 05/09/2023 18:22:37 zoster recombinant 1 completed Kate Spears null, PA - [facility] 05/09/2023 18:22:37 zoster recombinant 1 completed Kate Spears null, PA - [facility] 05/09/2023 18:22:37 COVID-19, mRNA, LNP-S, PF, 100 mcg/0.5mL dose or 50 mcg/0.25mL dose 1 completed Kate Spears null, PA - [facility] 05/09/2023 18:22:37 COVID-19, mRNA, LNP-S, PF, 100 mcg/0.5mL dose or 50 mcg/0.25mL dose 1 completed Kate Spears null, PA - [facility] 05/09/2023 18:22:37 COVID-19, mRNA, LNP-S, PF, 100 mcg/0.5mL dose or 50 mcg/0.25mL dose 1 completed Kate Spears null, PA - [facility] 05/09/2023 18:22:37 Influenza, split virus, trivalent, preservative 2 completed Kate Spears null, PA - [facility] 05/09/2023 18:22:37 Influenza, split virus, quadrivalent, PF 0 completed Kate Spears null, PA - [facility] 05/09/2023 18:22:37 Influenza, split virus, quadrivalent, PF 9 completed Kate Spears null, PA - [facility] 05/09/2023 18:22:37 Influenza, split virus, quadrivalent, PF 1 completed Kate Spears null, PA - [facility] 05/09/2023 18:22:37 RSV, recombinant, protein subunit RSVpreF, adjuvant reconstituted, 0.5 mL, PF 3 completed FATOU Amado [facility] 04/30/2024 09:23:59 COVID-19, mRNA, LNP-S, PF, 50 mcg/0.5 mL 3 completed FATOU Amado [facility] 04/30/2024 09:23:59 Past Encounters Encounter ID Performer Location Encounter Start Date Encounter Closed Date Diagnosis/Indication Diagnosis SNOMED-CT Code Diagnosis ICD10 Code Diagnosis Note [id number] [address] [facility] [address] [place] [address] 02/18/2017 18:20:24 02/18/2017 18:59:56 [id number] FATOU PANDYA [facility] [address] [place] [address] 05/09/2023 17:15:06 05/09/2023 19:13:41 Increased frequency of urination 195780185 R35.0 Diarrhea 84898364 R19.7 Nausea 080736830 R11.0 Upper resp iratory infection 89666877 J06.9 [id number] Maria Victoria Palmer MD [facility] [address] [place] [address] 05/13/2023 15:23:04 05/13/2023 17:19:07 Diarrhea 08805050 R19.7 Viral syndrome 521674360 B34.9 [id number] Cricket Morrow DO [facility] [address] [place] [address] 04/30/2024 08:56:55 04/30/2024 09:40:31 Cellulitis 425437117 L03.90 PE consistent with Cellulitis will Rx antibiotic sTake your antibiotic with food. Eat a yogurt daily or take a probiotic while you are taking the antibiotic .You may use over the counter tylenol or ibuprofen as needed for pain or feverKeep are clean and dryArea of erythema demarcated with skin penPlease follow up with your PCP in 1 week to recheckPat ient advised to follow up as needed for worsening symptoms or no improvemen Audra alvarado concerning red flags with patient and reasons to follow up in the Emergency Department urgently.P atient expressed understand ing of and agreement with the plan as outlined above. Health Concerns Section Related Observation LastModified by Organization Detai ls LastModified Time None Recorded Concern Status LastModified by Organization Details LastModified Time None Recorded Advance Directives Directive None Recorded Payers Insurance Date Sequence Insurance Name Policy Number Policy West Covered Member ID West Member ID Guarantor Name 04/30/2024 1 [place]: [employer] [facility] [id number] [facility] 07/13/2024 2 [place] [employer] [facility] [id number] [facility] 04/30/2024 1 [facility] [employer] [facility] (MEDICAID HMO) [id number] [facility] [id number] [facility] Notes Date Note Type Note Provider Name and Address Organization Details Recorded Time 05/09/2023 text/html CongestionReport ed bypatient.Notes:63 y.o well hydrated and nontoxic looking patient with h.o depression, hypothyroidism, IBS, kidney disease and osteoporosis presents with ongoing but intermittent urinary frequency, diarrhea and congestion that has been going on for 2-3 weeks. Most of these sx's patient has also had for years. She has seen her PCP and had multiple trips to the ED which all tests returned negative. Pt denies fever, abd pain, weight loss or dysuria. FATOU PANDYA [address] [place], [address], [place] - [facility] 05/13/2023 22:38:15 05/13/2023 text/html CongestionNewR eported bypatient.LocationBilat eral Associated Symptomsrunny nose; mild QualityNo sinus pressure. TimingConstant; Waxes and WanesNotes:63 year old female presenting with request t o have a covid 19 PCR test performed. She was seen here on 05/09/2023 with several week hx of congestion, nausea, diarrhea, urinary frequency. She had a negative rapid covid and flu test. Her urine culture was negative. She was prescribed Florastor, immodium and ondansetron. The patient states she was under the impression that a PCR test for covid had been sent out but it apparently wasn't. She would like to have this test done. The patient reports that her diarrhea has actually improved since she started the Immodium. She was having abdominal cramps with the diarrhea which has also improved. She continues to have nasal congestion and a diminished sense of taste. No fever, chills, headache, rash, stiff neck, cough, sore throat, chest pain, shortness of breath, vomiting, dysuria, body aches. Maria Victoria Palmer MD [address] [place], [address], [employer] 05/14/2023 20:15:14 04/30/2024 text/html 64 yo female c/o L wrist pain x 2 d + red and swollen no known h/o traumano rashno bruisingno numbnessno tinglingno weaknessno f/c/n/v tried ice RHD Cricket Morrow DO [address] [place], [address], [employer] 04/30/2024 09:48:28 OBGyn Episode No OBEpisode recorded.
--- OUTSIDE RECORDS SUMMARY | 2024-11-08 14:41 | XMS_ITS | Data Portability ---
Author Organization [place] - [facility], Allergy Address [address] [place] [id number] Assessment No assessment recorded. Plan of Treatment Reminders Order Date Submit Date Provider Last Modified By Organization Details Last Modified Time Details Appointments None record ed. Lab None record ed. Referral None record ed. Procedures None record ed. Surgeries None record ed. Imaging None record ed. Medication Orders None record ed. Patient TargetsNo targets recorded. Patient InstructionsNo instructions recorded. Reason for Referral None Reported. Results Created Date Observation Date Name Description Value Unit Range Abnormal Flag Note LastModifiedBy Organization Detail LastModifiedTime 01/23/20 audio gram No observ ation record ed. BARCODE Not Available 2023 15:26:47 02/11/20 24 07/17/2021 imagi ng/di agnos tic resul t No observ ation record ed. [email or web address] Not Available 00:37:52 02/11/20 24 08/23/2022 imagi ng/di agnos tic resul t No observ ation record ed. [email or web address] Not Available 00:37:53 02/11/20 24 11/11/2023 imagi ng/di agnos tic resul t No observ ation record ed. [email or web address] Not Available 00:37:56 02/11/20 24 11/26/2022 imagi ng/di agnos tic resul t No observ ation record ed. [email or web address] Not Available 00:38:04 02/11/20 24 12/27/2022 imagi ng/di agnos tic resul t No observ ation record ed. [email or web address] Not Available 00:38:05 02/11/20 24 03/20/2021 imagi ng/di agnos tic resul t No observ ation record ed. [email or web address] Not Available 00:38:12 02/11/20 24 03/28/2022 audio gram No observ ation record ed. [email or web address] Not Available 00:38:42 02/11/20 24 05/03/2022 imagi ng/di agnos tic resul t No observ ation record ed. [email or web address] Not Available 00:39:02 Result Notes None recorded. Problems Name Problem SNOMED Code Status Onset Date Resolution Date Notes Provider Name and Address Organization Details Recorded Time Headache 40810266 Active 2021 Headache, unspecifi ed; Note: Changed from R51 to R51.9 (04/03/20 12:08 PM) , Date Diagnosed : 03/28/2022 2:27 PM (R51) Not Available [facility] 4 02:59:17 Disorder of left Eustachia n tube 37283514163 93553 Active 2021 Other specified disorders of Eustachia n tube, left ear; Note: Date Diagnosed : 07/17/2021 2:11 PM (H69.82) Not Available [facility] 4 02:59:16 Bilateral disorder of Eustachia n tubes 96168250682 10462 Active 2021 Other specified disorders of Eustachia n tube, bilateral ; Note: Date Diagnosed : 03/28/2022 2:27 PM (H69.83) Not Available [facility] 4 02:59:14 Dizziness and giddiness 546320434 Active 2022 Dizziness and giddiness ; Note: Date Diagnosed : 01/23/2023 3:39 PM (R42) Not Available [facility] 4 02:59:16 Fatigue 78401851 Active 2021 Fatigue NOS; Note: Date Diagnosed : 03/28/2022 2:27 PM (R53.83) Not Available [facility] 4 02:59:16 Jaw pain 514826384 Active 2021 Jaw pain; Note: Date Diagnosed : 03/28/2022 2:27 PM (R68.84) Not Available [facility] 02:59:17 Tobacco user 545104683 Active 2020 Tobacco use; Note: Date Diagnosed : 03/20/2021 2:13 PM (Z72.0) Not Available [facility] 02:59:16 Chronic serous otitis media of right ear 045650353 Active 2020 Chronic serous otitis media, right ear; Note: Date Diagnosed : 03/20/2021 11:24 AM (H65.21) Not Available [facility] 02:59:14 Problem Notes None recorded. Procedures Surgical History Date Name Laterality Status Provider Name and Address Organization Details Recorded Time Air & Speech Audio with Tymps - 06981, 87056 & 62788 cancelled PAT SANTIAGO [address], [address], [place] - [facility] 12/12/2023 16:35:00 cardiac pacemaker procedure completed VENITA FAUSTIN MD 100 [facility],[address], [address], [place] - [facility] 12/12/2023 16:48:15 Imaging Results Imaging Date Name Status LastModified by [facility] Details LastModified Time 01/23/2024 audiogram completed BARCODE Information no t available 01/23/2024 15:26:47 07/17/2021 imaging/diagno stic result completed Information not available 02/11/2024 00:37:52 08/23/2022 imaging/diagno stic result completed Information not available 02/11/2024 00:37:53 11/11/2023 imaging/diagno stic result completed Information not available 02/11/2024 00:37:56 11/26/2022 imaging/diagno stic result completed Information not available 02/11/2024 00:38:04 12/27/2022 imaging/diagno stic result completed Information not available 02/11/2024 00:38:05 03/20/2021 imaging/diagno stic result completed Information not available 02/11/2024 00:38:12 03/28/2022 audiogram completed Information not available 02/11/2024 00:38:42 05/03/2022 imaging/diagno stic result completed Information not available 02/11/2024 00:39:02 Procedure Notes None recorded. Medical Equipment None Reported. Allergies Allergen ID Allergen Name Allergen Category Reaction Reaction Severity Criticality Documentation Date Start Date Code Code System Note Provider Name and Address Organization Details Recorded Time 132541 Reglan medicatio n other Not available Not available 11/04/2023 9230 RxNorm React ion: Unkno wn; Not Available [facility] 4 01:07:23 453321 prednison e medicatio n other Not available Not available 11/04/2023 8640 RxNorm React ion: Unkno wn; Not Available [facility] 4 01:07:24 796533 lactose Not available other Not available Not available 11/04/2023 6211 RxNorm React ion: Unkno wn; Not Available [facility] 4 01:07:25 Medications Name Sig Start Date Stop Date Status Note LastModified by Organization Details LastModified Time oxcarbaze pine 150 mg tablet TAKE 1/2 TABLET TWICE A DAY BY MOUTH active Not Available Not Available No t Available cetirizin e 10 mg tablet 2023 active Medicati on ID: [id number] D uration Value: 90 Brand Name: cetirizi ne Send Method: E-Prescr ibed Sub s Allowed: subs OK Speci al Instruct ion: TAKE 1 TABLET BY MOUTH EVERY DAY Medi cationGe nericNam e: cetirizi ne Not Available Not Available Not Available citalopra m 10 mg tablet TAKE 1 TABLET BY MOUTH EVERY DAY WITH 20MG FOR TOTAL DOSE OF 30MG active Not Available Not Available No t Available ondansetr on HCl 4 mg tablet active Medicati on ID: [id number] B rand Name: ondanset miguel HCl Send Method: E-Prescr ibed Sub s Allowed: subs OK Medic ationGen ericName : ondanset miguel HCl Not Available Not Available Not Available clonazepa m 1 mg tablet TAKE 1 TABLET BY MOUTH THREE TIMES A DAY NEEDED active Not Available Not Available No t Available levothyro xine 75 mcg tablet TAKE 1 TABLET BY MOUTH EVERY DAY active Not Available Not Available No t Available citalopra m 20 mg tablet TAKE 1 TABLET BY MOUTH EVERY DAY active Not Available Not Available No t Available trazodone 100 mg tablet TAKE 1 TO 2 TABLETS BY MOUTH AT BEDTIME active Not Available Not Available No t Available amitripty line 10 mg tablet TAKE 1 TABLET BY MOUTH EVERYDAY AT BEDTIME 12/11 completed Not Available Not Available Not Available meclizine 25 mg tablet 12/11 completed Medicati on ID: [id number] B rand Name: meclizin e Send Method: E-Prescr ibed Sub s Allowed: subs OK Medic ationGen ericName : meclizin e Medica tion ID: [id number] B rand Name: meclizin e Send Method: E-Prescr ibed Sub s Allowed: subs OK Medic ationGen ericName : meclizin e Not Available Not Available Not Available ferrous sulfate 325 mg (65 mg iron) tablet TAKE 1 TABLET BY MOUTH DAILY WITH VIT C. MAY TAKE WITH FOOD TO MINIMIZE ABDOMINA L DISCOMFO RT. active Not Available Not Available No t Available gabapenti n 300 mg capsule TAKE 1 CAPSULE BY MOUTH THREE TIMES A DAY active Not Available Not Available No t Available sertralin e 25 mg tablet 01/23 completed Medicati on ID: [id number] B rand Name: sertrali ne Send Method: E-Prescr ibed Sub s Allowed: subs OK Medic ationGen ericName : sertrali ne Not Available Not Available Not Available Vitamin C 250 mg tablet TAKE 1 TABLET BY MOUTH EVERY DAY active Not Available Not Available No t Available ondansetr on 4 mg disintegr ating tablet PLACE 1 TABLET ON THE TONGUE AND ALLOW TO DISSOLVE EVERY 6-8 HOURS NEEDED 12/11 completed Not Available Not Available Not Available fluticaso ne propionat e 50 mcg/actua tion nasal spray,senia pension 01/23 completed Medicati on ID: [id number] B rand Name: fluticas one propiona te Send Method: E-Prescr ibed Sub s Allowed: subs OK Medic ationGen ericName : fluticas one propiona te Not Available Not Available Not Available fludrocor tisone 0.1 mg tablet 12/11 completed Medicati on ID: [id number] B rand Name: fludroco rtisone Send Method: E-Prescr ibed Sub s Allowed: subs OK Medic ationGen ericName : fludroco rtisone Medicati on ID: [id number] B rand Name: fludroco rtisone Send Method: E-Prescr ibed Sub s Allowed: subs OK Medic ationGen ericName : fludroco rtisone Not Available Not Available Not Available ipratropi um bromide 21 mcg (0.03 %) nasal spray 2023 active Medicati on ID: [id number] B rand Name: ipratrop ium bromide Send Method: E-Prescr ibed Sub s Allowed: subs OK Speci al Instruct ion: 2 sprays in each nostril 2-3 times a day Medi cationGe nericNam e: ipratrop ium bromide Not Available Not Available Not Available rosuvasta tin 10 mg tablet TAKE 1 TABLET BY MOUTH EVERYDAY AT BEDTIME active Not Available Not Available No t Available sodium chloride 1,000 mg soluble tablet TAKE 1 TABLET BY MOUTH THREE TIMES DAILY active Not Available Not Available No t Available riboflavi n (vitamin B2) 400 mg tablet active Medicati on ID: [id number] B rand Name: riboflav in (vitamin B2) Send Method: E-Prescr ibed Sub s Allowed: subs OK Medic ationGen ericName : riboflav in (vitamin B2) Not Available Not Available Not Available Xiidra 5 % eye drops in a dropperet te INSTILL 1 DROP INTO BOTH EYES TWICE A DAY DIRECTED active Not Available Not Available No t Available Vitals Date Recorded Body height Body mass index (BMI) Body weight Provider Name and Address Organization Details Last Updated DateTime 12/12/2023 162.56 cm 23.5 kg/m2 32217.15 g Wanda Cuellar [place] - [facility] 12/12/2023 16:39:53 Social History None recorded. Functional Status None recorded. Mental Status None recorded. Family History Nothing Reported. Medical History Condition Response Migraines Y Thyroid Problems Y Gynecological HistoryNo gynecological history recorded. Obstetrics History GPAL:G 0 P 0 0 0 0 Past Encounters Encounter ID Performer Location Encounter Start Date Encounter Closed Date Diagnosis/Indication Diagnosis SNOMED-CT Code Diagnosis ICD10 Code Diagnosis Note [id number] VENITA FAUSTIN MD [facility] [address] [address] 12/12/2023 16:41:28 12/12/2023 16:49:13 Bilateral disorder of Eustachian tubes [id number] 030121 H69.83 63-year-ol d female presents today after tube placement. She still has some discomfort . Thankfully , audiogram showed complete normalizat ion of hearing. Follow-up 6 months. Audiologic al evaluation results:Ri ght ear:{{Norm al* Mild M oderate Mo derately-s evere Teresita re Profoun d}} {{hearing* sloping to a mild slopi ng to a moderate s loping to moderately severe slo ping to severe slo ping to profound f lat high frequency low frequency mid frequency cookie bite josé curve}} {{with* se nsorineura l hearing loss with condu ctive hearing loss with mixed hearing loss with}} {{excellen t* good fa ir poor no t measurable }} word recognitio n. Tympanomet ry:Right Ear:{{Type A Type As Type Ad Type C Type C, shallow & rounded Ty pe B Type B with large volume* Co uld not maintain a hermetic seal}} Health Concerns Section Related Observation LastModified by Organization Detai ls LastModified Time None Recorded Concern Status LastModified by Organization Details LastModified Time None Recorded Advance Directives Directive None Recorded Payers Insurance Date Sequence Insurance Name Policy Number Policy West Covered Member ID West Member ID Guarantor Name 06/04/2024 1 [facility] (MEDICAID HMO) [id number] Alicia Reaves [id number] Alicia Reaves Notes Date Note Type Note Provider Name and Address Organization Details Recorded Time 12/12/2023 text/html Had tube placed last visit. Did have some discomfort for a couple weeks after. Still a little blockage. PV: 63-year-old with history of eustachian tube dysfunction presents for follow-up. Has chronic rhinorrhea worsen the morning. Use to you Zyrtec and ipratropium but has not been using recently. Also is constantly dizzy, nauseous and fatigue. Reports that she sleeps 12 hours a day and then needs to rest on the couch throughout the day as well.Her right ear has felt completely blocked up for the past four months. Dizziness possibly worse during this time.H/o hypotension and sinus bradycardia s/p pacemaker. Medical history also significant for migraines, depression, chronic fatigue, history of small bowel obstruction,Hypoth yroidism. VENITA FAUSTIN MD [address] [place] [address], [place], [address], [facility] - [facility] 12/12/2023 16:48:26 OBGyn Episode No OBEpisode recorded.
--- OUTSIDE RECORDS SUMMARY | 2024-11-08 14:41 | XMS_ITS | Continuity of Care Document ---
Author Organization [facility] Address [address] [place] [address]- Care Team Providers Care Brass Pourer Name Role Phone Deon YEE, Yonatan W Primary Care Physician [phone] [place] [facility] [place] 10[place]06[place]24 - 11/05/24 [facility] [address] [place] [phone]- Encounter Type: Triage Allergies, Adverse Reactions, Alerts Substance Criticality Severity Reaction Reaction Severity Status cephalexin Diarrhea Active metoclopramide Other Activ e Reglan Active predniSONE Not available Muscle pain Joint pain Active Lactose Other Active mirtazapine Unknown Active Remeron Active Immunizations Given and Recorded Vaccine Date Status Refusal Reason influenza virus vaccine, inactivated 05/10/24 Give n influenza virus vaccine, inactivated 04/11/22 Give n influenza virus vaccine, inactivated 04/18/21 Jamshid rded influenza virus vaccine, inactivated 04/08/20 Jamshid rded influenza virus vaccine, inactivated 1 04/20/18 Re corded influenza virus vaccine, inactivated 03/31/18 Jamshid rded influenza virus vaccine, inactivated 2 04/09/17 Re corded influenza virus vaccine, inactivated 04/03/16 Give n influenza virus vaccine, inactivated 05/12/15 Give n influenza virus vaccine, inactivated 04/24/13 Give n influenza virus vaccine, inactivated 3 03/24/12 Gi paola influenza virus vaccine, inactivated 4 04/30/10 Gi paola influenza virus vaccine, inactivated 04/27/09 Give n RSV vaccine preF3, recombinant 05/29/23 Recorded SARS-CoV-2(COVID-19)mRNA-LNP vac([id number]) 05/29/23 Recorded SARS-CoV-2 (COVID-19) mRNA-1273 vaccine 05/31/21 R ecorded SARS-CoV-2 (COVID-19) mRNA-1273 vaccine 11/02/20 R ecorded SARS-CoV-2 (COVID-19) mRNA-1273 vaccine 10/31/20 R ecorded SARS-CoV-2 (COVID-19) mRNA-1273 vaccine 10/04/20 R ecorded zoster vaccine, inactivated 11/22/20 Recorded zoster vaccine, inactivated 08/04/20 Recorded Influenza Virus Vaccine (oldterm) 04/13/19 Recorde d influ virus vac, H1N1, inactive(oldterm) 5 08/08/09 Given Tetanus-Diphth Toxoids, Adult (oldterm) 6 08/08/09 Given pneumococcal 23-valent vaccine 7 04/27/09 [facility] 4Admin Note: vis given vis date 01/30/2010 5Admin Note: pt reports recieving this at the [facility] this weekend 6Admin Note: vis given dated 09/29 7Result Comment: Lot # [id number] EXP. NOVEMBER 05, 2009 Problem List Condition Confirmation Course Effective Dates Status H ealth Status Informant Abdominal bloating Confirmed Active Abdominal pain Confirmed Active Anxiety depression 1, 2, 3 Confirmed Active Chronic fatigue Confirmed Active Constipation Confirmed Active Poor appetite Confirmed Active DDD (degenerative disc disease), lumbar Confirmed Active Dizziness Confirmed Active Eustachian tube dysfunction Confirmed Active Dysfunction of both eustachian tubes Confirmed Active Dyslipidemia 4 Confirmed Active Dyspnea on exertion Confirmed Active Erosive gastropathy Confirmed Active Fibromuscular dysplasia Confirmed Active Fibromyalgia Confirmed Active Tobacco use Confirmed Active Low folic acid Confirmed Active Callus of foot, (left ankle) Confirmed Active Sternal fracture (body), (history of fracture per LDCT) Confirmed 10/07/23 Active Gastritis Confirmed Active UMANG (generalized anxiety disorder) Confirmed Active Leg heaviness Confirmed Active Hydronephrosis of left kidney (mild) Confirmed Active Hypothyroidism Confirmed Active IBS (irritable bowel syndrome) Confirmed Active YURI (iron deficiency anemia) Confirmed Active Lactose intolerance Confirmed Active Hypotension arterial Confirmed Active Lytic lesion of bone on x-ray--> Bone scan: No focal increased radiotracer uptake in the right pubic symphysis at the site of lytic lesion seen on the recent hip radiograph. Confirmed 10/07/19 Active Migraine Confirmed Active Nausea Confirmed Active Osteoporosis 5 Confirmed Active Other Pain Disorders Related to Psychological Factors Confirmed Active Paroxysmal atrial fibrillation 6 Confirmed Active Personality disorder NOS Confirmed Active Pituitary gland enlarged with MRI from 06/2019: Stable fullness of a nonenlarged pituitary gland with homogeneous enhancement and without convincing evidence of a discrete mass. 7, 8, 9 Confirmed 2004 Active Polyarthropathy, multiple sites Confirmed Active Post-nasal drip Confirmed Active Psychogenic tremor Confirmed Active Renal artery stenosis < 60%, right Confirmed 12/07/21 Active Right bundle branch block (RBBB) Confirmed Active Scoliosis of thoracolumbar spine Confirmed Active Severe recurrent major depression Confirmed Active Sick sinus syndrome due to SA node dysfunction (01/2022: S/P dual-chamber pacemaker implant) Confirmed Active Sinus bradycardia Confirmed Active Small bowel obstruction due to adhesions Confirmed Active Tobacco use disorder Confirmed Active 1Underwent genetic testing, citalopram is being weaned off, now on trinitllex. 2Seeing Candes Makenna for therapy- 3Spoke to Dr. Doe on 02/22/2015. She has tried tapering the dose of Celexa by few milligrams, tried tapering clonazepam and even tried to wean her off Trileptal, however patient hasn't toleratedit well with worsening anxiety. As per psychiatrist she is much better than her previous visits when she used to be more anxious. 4Normalization of LFTs after discontinuation of pravastatin 20 mg. Switched over to rosuvastatin 10 mg. 5Off fosamax since 04/2020 after 4 years ofl treatment. 6Per Dr. Adams documentation (11/06/2022), patient continues to refuse anticoagulation due to fear of side effects. 7MRI 2014: IMPRESSION: Mild fullness of the pituitary gland without evidence of definite enlargement or a definite focal lesion. No change from 2009. Seeing by Dr. Eddy, w/u negative. 8Diagnosed in [place] in , after supposed elevated prolactin and chronic headaches. Had MRI in , , and that showed a prominent pituitary gland, with a 4 mm hypoenhanced nodule that could represent a microadenoma or cyst. Did not have any interval change. 9seen on MRI scans from [facility] Social History Social History Type Response Smoking Status Current every day sm oker; Tobacco user in household: No; Type: Cigarettes; Tobacco use times per day: 3 cigerretes a day. 1PPD for 30 years.; Total pack years: 30; entered on: 05/12/17 Sex Sex Representation Female (finding) Implantable Device List Procedure Provider Procedure Date Device Type Site Insertion Primary Pacemaker Hari Elizabeth MD 01/28/22 Unknown Chest Device Identifier Serial Number Lot or Batch Number Manufacturing Date Expiration Date Distinct Identification Code MRI Safety Implantable Status Assigning Authority Unknown [id number] Unknown Unknown 12/17/23 Unknown Unknown Active Unkn own Procedure Provider Procedure Date Device Type Site Insertion Primary Pacemaker Dual Hari Linder MD 01/28/22 Unknown Chest Device Identifier Serial Number Lot or Batch Number Manufacturing Date Expiration Date Distinct Identification Code MRI Safety Implantable Status Assigning Authority Unknown [id number] Unknown Unknown 12/13/23 Unknown Unknown Active Unk nown Procedure Provider Procedure Date Device Type Site Insertion Primary Pacemaker Dual Hari Linder MD 01/28/22 Unknown Chest Device Identifier Serial Number Lot or Batch Number Manufacturing Date Expiration Date Distinct Identification Code MRI Safety Implantable Status Assigning Authority Unknown [id number] Unknown Unknown 08/08/22 Unknown Unknown Active Unk nown Patient Care team information Care Team Personnel Name: Brody LIM, Amor Black Position: S RN Member Role: Primary Care Nurse Name: Jayde Kraus RN Position: S RN Member Role: Primary Care Nurse Name: Lo Alvarado RN Position: S RN Member Role: Primary Care Nurse Name: Yonatan Chavarria MD Position: [facility] Physician - Primary Care Member Role: PCP Address: [address] [place] [address] Telecom: Care Team Related Persons Name: KENIA CUMMINGS Name: VINNY CUMMINGS Insurance Providers Guarantor name: [facility] [employer] Information #: 1 Payer: MEDICARE PART B OUTPT Member Number: NA Policy Number: NA Group Number: NA Health Plan Information #: 2 Payer: [facility] Member Number: NA Policy Number: NA Group Number: NA
--- OUTSIDE RECORDS SUMMARY | 2024-11-08 14:41 | XMS_ITS | Clinical Summary ---
Author Organization [facility] Address [address] [place] [address] Care Team Providers Care Tube Dispatcher Name Role Phone Sony Herrera MD Primary Care Provider Social History Tobacco Use Types Packs/Day Years Used Date Smoking Tobacco: Never Assessed Comments Unknown Sex and Gender Information Value Date Recorded Sex Assigned at Not on file Legal Sex Female 8:53 PM EDT Gender Identity Not on file Sexual Orientation Not on file Plan of Treatment Health Maintenance Due Date Last Done Comments Hepatitis C Screening 1959 DTaP/Tdap/Td (1 - Tdap) 1977 Mammogram/Breast Imaging 1999 Pneumococcal 50+ years (1 of 1 - PCV) 2009 Zoster (Shingrix) (1 of 2) 2009 COVID-19 Vaccine ( - 2023-2 5 season) 2024 Influenza (#1) 2024 Bone Density 2024 RSV (1 - 1-dose 75+ series) 2034 HPV Vaccine Aged Out No longer eligi ble based on patient's age to complete this topic Hep A Aged Out No longer eligi ble based on patient's age to complete this topic Hep B Aged Out No longer eligi ble based on patient's age to complete this topic Hib Aged Out No longer eligi ble based on patient's age to complete this topic Meningococcal ACWY Aged Out No longer eligible based on patient's age to complete this topic Pap Smear Discontinued Zoster (Zostavax) Discontinued Care Teams Tube Dispatcher Relationship Specialty Start Date End Date Sony Herrera MD [address] [place] [address] PCP - General 01/27/23
--- OUTSIDE RECORDS SUMMARY | 2024-11-08 14:41 | XMS_ITS | Continuity of Care Document ---
Author Organization [facility] Address [address] [place] [address]- Care Team Providers Care Color Separation Photographer Name Role Phone Yonatan Chavarria MD Primary Care Physician Encounter 10/28/24 - 11/04/24 [facility] [place] [address], [address] [place] [address]- Attending Physician: Yonatan Chavarria MD Admitting Physician: Yonatan Chavarria MD Referring Physician: Yonatan Chavarria MD Encounter Type: OutPatient One Time Allergies, Adverse Reactions, Alerts Substance Criticality Severity [...] RSV vaccine preF3, recombinant 05/29/23 Recorded SARS-CoV-2(COVID-19)mRNA-LNP vac([id number]) 05/29/23 Recorded SARS-CoV-2 (COVID-19) mRNA-1273 vaccine 05/31/21 [...] Note: pt reports recieving this at the [facility] this weekend 6Admin Note: vis [...] being weaned off, now on trinitllex. 2Seeing Segundo Mensah for therapy- 3Spoke to Dr. Doe on [...] by Dr. Eddy, w/u negative. 8Diagnosed in [place] in , after supposed elevated prolactin and chronic headaches. Had MRI in , , and that showed a prominent pituitary gland, with a 4 mm hypoenhanced nodule that could represent a microadenoma or cyst. Did not have any interval change. 9seen on MRI scans from [facility] Results Radiology Reports * Exam Date Time Procedure Performing Provider Status 10/28/24 3:24 PM Sacroiliac Joints Min 3 Views Stephanie English MA; Auth (Verified) Notes: (Sacroiliac Joints Min 3 Views) Reason For Exam: R/O arthritis;Pain RESULT: Sacroiliac Joints Min 3 Views Lumbar spine 3 views SI joints 3 views Reason: Pain; R O arthritis COMPARISON: None. FINDINGS: No bone lesions or fractures. 38 degree convex right curve from T10 to L3. Loss of lumbar lordosis but otherwise normal sagittal alignment. Severe asymmetrical right-sided degenerative disc changes and L4-5 and L5-S1. Moderate multifocal facet arthropathy. No spondylolysis or spondylolisthesis. Normal sacrum and SI joints. Normal soft tissues. IMPRESSION: Relatively severe scoliosis and severe lower lumbar disc and facet arthropathy. WSN: [id number] Ordering Physician: Yonatan Chavarria Dictated By: Sony Gonzalez MD Dictated Date/Time: 10/28/24 3:37 pm Reviewed By: Sony Gonzalez MD Signed By: Sony Gonzalez MD Signed Date/Time: 10/28/24 3:37 pm Transcribed By: MEGHANA Transcribed Date/Time: 10/28/24 3:34 pm * Exam Date Time Procedure Performing Provider Status 10/28/24 3:24 PM Lumbar Spine 2 or 3 Views Jessie English MA; Auth (Verified) Notes: (Lumbar Spine 2 or 3 Views) Reason For Exam: R/O arthritis;Pain RESULT: Lumbar Spine 2 or 3 Views Lumbar spine 3 views SI joints 3 views Reason: Pain; R O arthritis COMPARISON: None. FINDINGS: No bone lesions or fractures. 38 degree convex right curve from T10 to L3. Loss of lumbar lordosis but otherwise normal sagittal alignment. Severe asymmetrical right-sided degenerative disc changes and L4-5 and L5-S1. Moderate multifocal facet arthropathy. No spondylolysis or spondylolisthesis. Normal sacrum and SI joints. Normal soft tissues. IMPRESSION: Relatively severe scoliosis and severe lower lumbar disc and facet arthropathy. WSN: [id number] Ordering Physician: Yonatan Chavarria Dictated By: Sony Gonzalez MD Dictated Date/Time: 10/28/24 3:37 pm Reviewed By: Sony Gonzalez MD Signed By: Sony Gonzalez MD Signed Date/Time: 10/28/24 3:37 pm Transcribed By: MEGHANA Transcribed Date/Time: 10/28/24 3:34 pm * Exam Date Time Procedure Performing Provider Status 10/28/24 3:24 PM XR Hip Bilat 2 Views W/AP Pelvis Amador OLIVER Stephanie; Auth (Verified) Notes: (XR Hip Bilat 2 Views W/AP Pelvis) Reason For Exam: Pain RESULT: Hip Bilat 2 Views W/ AP Pelvis Hip Bilat 2 Views W/ AP Pelvis Reason: Pain COMPARISON: 10/07/2019 FINDINGS: No fracture or dislocation. Well preserved joint space. Normal femoral head contour without evidence of avascular necrosis. Normal soft tissues. IMPRESSION: Normal hip joints. WSN: [id number] Ordering Physician: Yonatan Chavarria Dictated By: Sony Gonzalez MD Dictated Date/Time: 10/28/24 3:34 pm Reviewed By: Sony Gonzalez MD Signed By: Sony Gonzalez MD Signed Date/Time: 10/28/24 3:34 pm Transcribed By: MEGHANA Transcribed Date/Time: 10/28/24 3:33 pm Social History Social History Type Response Smoking [...] MRI Safety Implantable Status Assigning Authority Unknown [id number] Unknown Unknown 12/17/23 Unknown Unknown Active Unkn own Procedure Provider Procedure Date Device Type Site Insertion Primary Pacemaker Hari Elizabeth MD 01/28/22 Unknown Chest Device Identifier Serial Number Lot or Batch Number Manufacturing Date Expiration Date Distinct Identification Code MRI Safety Implantable Status Assigning Authority Unknown [id number] Unknown Unknown 12/13/23 Unknown Unknown Active Unk nown Procedure Provider Procedure Date Device Type Site Insertion Primary Pacemaker Hari Elizabeth MD 01/28/22 Unknown Chest Device Identifier Serial Number Lot or Batch Number Manufacturing Date Expiration Date Distinct Identification Code MRI Safety Implantable Status Assigning Authority Unknown [id number] Unknown Unknown 08/08/22 Unknown Unknown Active Coryk frannien Patient Care team information Care Team Personnel Name: Brody LIM, Amor Black Position: [facility] RN Member Role: Primary Care Nurse Name: Jayde Kraus RN Position: S RN Member Role: Primary Care Nurse Name: Lo Alvarado RN Position: [facility] RN Member Role: Primary Care Nurse Name: Yonatan Chavarria MD Position: [facility] Physician - Primary Care Member Role: PCP Address: [address] [place] [id number] Telecom: Care Team Related Persons Name: KENIA CUMMINGS Name: VINNY CUMMINGS Insurance Providers Guarantor name: [facility] [employer] [facility] Information #: 1 Payer: MEDICARE PART B OUTPT Member Number: [id number] Policy Number: NA Group Number: NA Health Plan Information #: 2 Payer: [facility] Member Number: [id number] Policy Number: NA Group Number: NA
--- OUTSIDE RECORDS SUMMARY | 2024-11-08 14:41 | XMS_ITS ---
Author Name [facility] Organization Unknown Encounters Encounter Type Encounter Reason Primary Diagnosis Location Date Ambulatory [facility] 06/2021 Care Team Organization Name Specialty Phone Email Start Date End Da te [facility] Javier Cardoza Primary Care 02/21/2022 02/26/2024
--- NOTE | 2024-11-08 15:00 | MHC.OFFVIS ---
Vital Signs 11/08/24 15:02 Height 5 ft 4 in Weight 143 lb BMI 24.5 BP 100/60 Blood Pressure Location Rt brachial Position Sitting Pulse 66 Pulse Source Pulse Oximeter Pulse Oximetry (%) 66 L Oxygen Delivery Method Room Air Intake Visit Reasons: Follow Up Accompanied by: Self / Same As Patient Allergies cephalexin Allergy (Mild, Verified 11/08/24 15:09) Diarrhea mirtazapine Allergy (Mild, Verified 11/08/24 15:09) Unknown metoclopramide [From Reglan] Allergy (Verified 11/19/23 15:08) hyper activity prednisone Allergy (Verified 11/19/23 15:08) Joint Pain Medication List - Last Reconciled 11/08/24 by ISAI Santos ascorbate calcium (vitamin C) 500 mg PO DAILY calcium [id number] 260 mg calcium- 25 mcg-50 mg (Alive Calcium-Vitamin D3) tabs PO cholecalciferol (vitamin D3) (Vitamin D3) 10 mcg PO DAILY citalopram 30 mg PO DAILY clonazepam 1 mg PO TID PRN coenzyme Q10 (Co Q-10) 400 mg PO DAILY diclofenac sodium 1% (Arthritis Pain (diclofenac)) 2 grams topical QID dicyclomine 10 mg PO QID droxidopa 100 mg PO TID 30 days famotidine 20 mg PO DAILY folic acid 1 mg PO DAILY gabapentin 300 mg PO TID levothyroxine 75 mcg PO DAILY lifitegrast 5% (Xiidra) 1 drp ophthalmic (eye) BID meclizine 25 mg PO BID PRN 30 days mecobalamin (vitamin B12) mcg PO omega [id number]-fish oil 60-90-500 mg (Fish Oil) 1 cap PO DAILY ondansetron HCl 4 - 8 mg (1 - 2 x 4 mg) PO Q6-8H PRN 30 days oxcarbazepine 75 mg PO BID riboflavin (vitamin B2) 400 mg PO DAILY 30 days rosuvastatin 10 mg PO BEDTIME sodium chloride 1,000 mg PO TID sucralfate 1 g PO BID trazodone 100 mg PO BID ubrogepant (Ubrelvy) 50 - 100 mg (0.5 - 1 x 100 mg) PO ONCE PRN 30 days HPI Comments Details: 64-yr-old female presents for f/u visit of tremor, orthostatic lightheadedness/diziness, and migraine. Pt reports she had a colonoscopy in September, which made her feel very unwell for at least a month. Pt reports she had a Repatha infusion, but this also made her feel very unwell for a month. She notes she is worried about previous DaTSCAN, which was mildly abnormal. States it makes her fearful that she might have Parkinson's. She states she is not sleeping well, but sleeps 12 hours. She watches TV all day long- denies daytime naps. When she wakes up in the am, she states she is spacey, cannot breathe, her stomach is sore and nausea. Her arms can be sore and shaky- when she is laying on the couch. She continues to have awful lightheadedness. She states she spends her life between the couch and the bed. Pt had renal consult, however she previously declined to do 24 hr BP monitor. Using Zofran quite often - but does not like it. PCP started her on bentyl and famotidine. Using Meclizine 25mg 1/4 tab as needed- unsure of effect. She is taking salt tabs twice a day- ordered by cardiology. She stopped fludrocortisone- previously stated it made her shake more. 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 In-lab PSG did not show sleep apnea- but pt did not sleep well during the study. She continues to have frequent migraine. She is having such pain in her head. She took one dose of the Ajovy- but she did not find it helpful. She stated she tried the Ubrlevy 50mg- but she felt it made her feel spaced and could not do anything. She stopped Amitriptyline- states did not tolerate, maybe it caused more anxiety. She has not started Ajovy- has been approved but [facility] did not have it in stock. Will resend. She is f/b psychiatry. [facility] Medical History (Updated 11/08/24 @ 20:01 by ISAI Santos) Pacemaker Thyroid disease Sleep problem Osteoporosis Kidney disease High cholesterol Headache Depression Anemia Surgical History S/P placement of cardiac pacemaker H/O: hysterectomy Family History Father Heart disease Mother Anxiety Depression Brother Prostate cancer History of hip replacement Family/Other Cancer Social History Alcohol intake: never Patient Tobacco Use Status: Current everyday Tobacco user Physical Exam Vital Signs: Last Vital Signs Pulse 66 11/08/24 15:02 BP 100/60 11/08/24 15:02 Pulse Ox 66 L 11/08/24 15:02 Oxygen Delivery Method Room Air 11/08/24 15:02 BMI result Body Mass Index 24.5 Const General: cooperative and no acute distress Orientation/consciousness: patient oriented x3 Resp Effort & Inspection: normal respiratory effort and able to speak in complete sentences Neuro Other: No visible tremor today. Mild decreased blink Fine finger movements, slightly decreased on right Foot taps, slightly decreased on right Stand slowly, slight stoop in shoulder, decreased arm swing bilaterally, short steps, slight high high step. As patient takes notes, mild shakiness and micrographia noted. Orthostatic BP and pulse, did not show orthostatic hypotension for marked change in heart rate, though did elicit dizziness. General: patient oriented x3 Cranial nerves: Yes CN's II-XII intact bilaterally Cognition (Neuro): normal cognition Psych Appearance: grossly normal Mental Status: mental status grossly normal Affect: normal affect Attitude: cooperative Results Reviewed Results Reviewed: Jan 2023 DaTscan- borderline positive test- possibly we have ordered DaTscan very early in a neurodegenertaive process- will monitor clinically. 11/08/2023, In-lab sleep study- no evidence for sleep apnea, though poor sleep. 2023 Nephrology consult- pt declined 24 hr BP monitor. Assessment & Plan Assessment & Plan (1) Migraine without aura: Code(s): G43.009 - Migraine without aura, not intractable, without status migrainosus Category: Medical (2) Orthostatic hypotension: Code(s): I95.1 - Orthostatic hypotension Category: Medical (3) Tremor: Code(s): R25.1 - Tremor, unspecified Category: Medical (4) Vertigo: Code(s): R42 - Dizziness and giddiness Category: Medical (5) Activity intolerance: Code(s): R68.89 - Other general symptoms and signs Category: Medical Plan For tremor and orthostatic lightheadedness/dizziness: Discussed that this time, patient does have some symptoms of movement disorder, however many of her symptoms are vague and overlap, thus we can not offer a specific movement disorder diagnosis at this time. As there are no current occurs for tremor predominant movement disorders, patient advised that most effective means of preventing progression is regular physical activity. However, unfortunately, pt experience signifcant activity intolerance, which likely is multi-factorial including orthostasis, migraine, cardiac dz, and deconditioning r/t spending the majority of her day laying down. Though no orthostasis observed today, pt was symptomatic w/ dizziness. Previous cardiology notes/records indicates last tilt table test showed OH w/o compensatory HR elvation, which raises suspicion for neurogenic OH component to pt's OH. Would hold on starting medication for tremor, as most tx's can exacerbate OH/dizziness s/s (ie BBs, dopaminergic tx, primidone). Continue sodium tabs- pt taking 2 x's per day- per cardiology. May continue Gabapentin 900mg/day- however ineffective for tremor. Start Droxidopa 100mg 3 x's per day- in hopes this reduces orthostatic lightheadedness/dizziness. Once started, sleep with head elevated, check am BP & HR. Request home out-patient PT- as pt does not drive. Information shared on [facility]- pt may benefit from homemaking assistance. Previous trials: Fludrocortisone- states worsens tremors. Midodrine- was not tolerated. For migraine headache prevention: Started Riboflavin 400mg daily in the morning. Patient has stopped Ajovy 225mg sc q month- states was ineffective, but only took 1 dose. Previous tx trials: Amitriptyline- pt states caused anxiety. Tx contraindications: BBs d/t symptomatic orthostatic hypotension. ? For acute migraine headache treatment: Continue Zofran 4-8mg every 6-8 hours as needed for nausea. Continue Meclizine 25mg- 1/4 tab twice a day as needed. Retrial Ubrelvy 100 mg tab p.r.n. at onset of migraine episode, may repeat x1. Max of 200 mg per day. Acute treatment contraindications: All triptans due to history of sick sinus syndrome. ? Will follow-up upon review of above and patient to follow-up in clinic in 6 months or sooner prn. Orders: Orders PT Evaluation and Treatment Today I95.1 - Orthostatic hypotension, R42 - Dizziness and giddiness, R68.89 - Other general symptoms and signs Medications: New droxidopa give consistently with OR without food, upon rising, at midday, late PM/at least 3hrs before bedtime 100 mg PO TID 30 days 90 caps 3RF Refilled ondansetron HCl 4 - 8 mg (1 - 2 x 4 mg) PO Q6-8H 30 days PRN 24 tabs 3RF nausea and vomiting riboflavin (vitamin B2) 400 mg PO DAILY 30 days 30 tabs 6RF meclizine 25 mg PO BID 30 days PRN 30 tabs 3RF dizziness Discontinued fremanezumab-vfrm (Ajovy) administer 225mg sc q month Discontinued Reason: Patient no longer taking 225 mg (1.5 mL) subcut ONCE 30 days 1.5 mL 6RF G43.009 - Migraine without aura, not intractable, without status migrainosus Coding Level of Care Code Est Pt Level 4 (33496) Complex EM visit Add On G2211 Diagnoses Migraine without aura G43.009 Orthostatic hypotension I95.1 Tremor R25.1 Vertigo R42 Activity intolerance R68.89
[2024-11-08 15:02] VITALS: BP 100/60; PULSE 66; O2SAT 66; BMI 24.5
== END 2024-11-09 07:32 | disposition home or self-care (01) ==
LOC: HO.HSMS 14:38
PROVIDERS: PCP Internal Medicine; Visit Provider Nurse Practitioner Family
DX: G43.009 Migraine without aura, not intractable, without status migrainosus (principal); I95.1 Orthostatic hypotension; R25.1 Tremor, unspecified; R42 Dizziness and giddiness; R68.89 Other general symptoms and signs
CPT/HCPCS: 99214

== ENCOUNTER → 2024-11-08 14:38 | Outpatient (BNVA) | payer MEDICAID, SELFPAY | PROVIDERS: PCP Internal Medicine; Visit Provider Nurse Practitioner Family | DX: G43.009 Migraine without aura, not intractable, without status migrainosus (principal); I95.1 Orthostatic hypotension; R25.1 Tremor, unspecified; R42 Dizziness and giddiness; R68.89 Other general symptoms and signs | CPT/HCPCS: 99212 ==

== ENCOUNTER 2025-04-14 13:33 | Outpatient (AMB) | payer MEDICARE, MEDICAID, SELFPAY ==
--- NOTE | 2025-04-14 13:37 | A.OFFVIS_ITS ---
Vital Signs 04/14/25 13:41 Height 5 ft 4 in BP 100/80 Blood Pressure Location Rt brachial Position Sitting Pulse 78 Pulse Source Pulse Oximeter Pulse Oximetry (%) 97 Oxygen Delivery Method Room Air Intake Visit Reasons: 6 mo follow up Accompanied by: Self / Same As Patient Allergies cephalexin Allergy (Mild, Verified 04/14/25 13:42) Diarrhea mirtazapine Allergy (Mild, Verified 04/14/25 13:42) Unknown metoclopramide (From Reglan) Allergy (Verified 04/14/25 13:42) hyper activity prednisone Allergy (Verified 04/14/25 13:42) Joint Pain HPI Comments Details: 65 she states she is overdue to see the her [id number] female presents for f/u visit of tremor, orthostatic lightheadedness/dizziness, and migraine. Tremor: - The patient reports ongoing issues with tremor. - The patient notes a new, diminished sense of taste. - Reports pain in bones and hips; stiffness in hands and feet. - She plans to have an upcoming spinal injection by Dr. Peres at [facility]. Orthostatic hypotension and dizziness: - The patient continues to experience dizziness and lightheadedness upon standing. - Respiratory: Reports shortness of breath. - Cardiovascular: Reports feeling her heart beating quickly. - She states she is overdue to see Cardiology, Dr Louis at [facility]. - Previous request for Droxydopa was denied by her insurance. Sleep: - The patient endorses high anxiety and reports poor sleep associated with it. - Sleeps 12 hours per day and spends an additional 12 hours lying down to watch TV. - Sleep with head elevated; previous sleep studies did not show sleep apnea. Migraine: - She is having at least daily migraine symptoms. - The patient took one dose of Ajovy for migraine, but was unsure of its eff ectiveness, and she did not repeat the dose. Ubrelvy is helpful, but a refill does not last a whole month. 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 - The patient denies a family history of flexibility but is uncertain if family members shared her level of flexibility at younger ages. 11/08/2024, HPI: Pt reports she had a colonoscopy in September, which made her feel very unwell for at least a month. Pt reports she had a Repatha infusion, but this also made her feel very unwell for a month. She notes she is worried about previous DaTSCAN, which was mildly abnormal. States it makes her fearful that she might have Parkinson's. She states she is not sleeping well, but sleeps 12 hours. She watches TV all day long- denies daytime naps. When she wakes up in the am, she states she is spacey, cannot breathe, her stomach is sore and nausea. Her arms can be sore and shaky- when she is laying on the couch. She continues to have awful lightheadedness. She states she spends her life between the couch and the bed. Pt had renal consult, however she previously declined to do 24 hr BP monitor. Using Zofran quite often - but does not like it. PCP started her on bentyl and famotidine. Using Meclizine 25mg 1/4 tab as needed- unsure of effect. She is taking salt tabs twice a day- ordered by cardiology. She stopped fludrocortisone- previously stated it made her shake more. Has a new [facility] r[place] management specialist. In-lab PSG did not show sleep apnea- but pt did not sleep well during the study. She continues to have frequent migraine. She is having such pain in her head. She took one dose of the Ajovy- but she did not find it helpful. She stated she tried the Ubrlevy 50mg- but she felt it made her feel spaced and could not do anything. She stopped Amitriptyline- states did not tolerate, maybe it caused more anxiety. She has not started Ajovy- has been approved but [facility] did not have it in stock. Will resend. She is f/b psychiatry. [facility] Medical History (Updated 05/06/25 @ 22:55 by ISAI Santos) Pacemaker Thyroid disease Sleep problem Osteoporosis Kidney disease High cholesterol Headache Depression Anemia Surgical History S/P placement of cardiac pacemaker H/O: hysterectomy Family History Father Heart disease Mother Anxiety Depression Brother Prostate cancer History of hip replacement Family/Other Cancer Social History Alcohol intake: never Patient Tobacco Use Status: Current everyday Tobacco user Physical Exam Vital Signs: Last Vital Signs Pulse 78 04/14/25 13:41 BP 100/80 04/14/25 13:41 Pulse Ox 97 04/14/25 13:41 Oxygen Delivery Method Room Air 04/14/25 13:41 Const General: cooperative and no acute distress Orientation/consciousness: patient oriented x3 Resp Effort & Inspection: normal respiratory effort and able to speak in complete sentences Neuro Other: No visible tremor today. Mild decreased expression and blink Fine finger movements, slightly decreased on left BUE SAMIR: Decreased fluidity on left Foot taps, slightly decreased on left Stands slowly, slight stoop in shoulder, no left arm swing, short steps- more so on left. General: patient oriented x3 Cranial nerves: Yes CN's II-XII intact bilaterally Cognition (Neuro): normal cognition Psych Appearance: grossly normal Mental Status: mental status grossly normal Affect: normal affect Attitude: cooperative Results Reviewed Results Reviewed: Jan 2023 DaTscan- borderline positive test- possibly we have ordered DaTscan very early in a neurodegenertaive process- will monitor clinically. 11/08/2023, In-lab sleep study- no evidence for sleep apnea, though poor sleep. 2023 Nephrology consult- pt declined 24 hr BP monitor. Assessment & Plan Assessment & Plan (1) Tremor: Code(s): R25.1 - Tremor, unspecified Category: Medical (2) Migraine without aura: Code(s): G43.009 - Migraine without aura, not intractable, without status migrainosus Category: Medical Qualifiers: Status migrainosus presence: without status migrainosus Intractability: not intractable Qualified Code(s): G43.009 - Migraine without aura, not intractable, without status migrainosus (3) Orthostatic hypotension: Code(s): I95.1 - Orthostatic hypotension Category: Medical (4) Vertigo: Code(s): R42 - Dizziness and giddiness Category: Medical (5) Activity intolerance: Code(s): R68.89 - Other general symptoms and signs Category: Medical Plan Discussion: During this visit, I discussed with the patient the likelihood of a hypermobility type of Roger-Danlos Syndrome diagnosis, which was suggested by a firewall security engineer. The implications of this diagnosis in terms of her flexibility history and present symptoms were considered. Migraine management was reviewed, and the patient agreed to resume Ajovy, as she was willing to give another trial. We identified the need for follow-up with Cardiology with Dr. Louis and Physiatry with Dr. Peres at [facility] for injection therapy. The patient was instructed on how to monitor and manage her anxiety that appears to influence her sleep patterns negatively. Patient was informed and verbally consented to the use of an ambient scribe for clinic note documentation during this visit. For tremor and orthostatic lightheadedness/dizziness: Previous cardiology notes/records indicates last tilt table test showed OH w/o compensatory HR elvation, which raises suspicion for neurogenic OH component to pt's OH. * Would hold on starting medication for tremor, as most tx's can exacerbate OH/dizziness s/s (ie BBs, dopaminergic tx, primidone). * Encouraged to take sodium tabs per cardiology. * May continue Gabapentin 300mg/day- however ineffective for tremor. * XR bilateral hand and feet * We will arrange for skin biopsy to assess for alpha synuclein skin deposits. * Upon review of results, reconsider Droxidopa 100mg 3 x's per day- in hopes this reduces orthostatic lightheadedness/dizziness. Once started, sleep with head elevated, check am BP & HR. * Offer home and outpatient PT, however she declines at this time. * Information previously shared on [facility]- pt may benefit from homemaking assistance. Previous trials: Fludrocortisone- states worsens tremors. Midodrine- was not tolerated. For migraine headache prevention: * Continue Riboflavin 400mg daily in the morning. * Resume Ajovy 225mg sc q month Previous tx trials: Amitriptyline- pt states caused anxiety. Tx contraindications: BBs d/t symptomatic orthostatic hypotension. ? For acute migraine headache treatment: * Continue Zofran 4-8mg every 6-8 hours as needed for nausea. * Continue Meclizine 25mg- 1/4 tab twice a day as needed. * Ubrelvy 100 mg tab p.r.n. at onset of migraine episode, may repeat x1. Max of 200 mg per day. Acute treatment contraindications: All triptans due to history of sick sinus syndrome. ? Will follow-up upon review of above and patient to follow-up in clinic in 6 months or sooner prn. Coding Level of Care Code Est Pt Level 4 (48993) Complex EM visit Add On G2211 Diagnoses Tremor R25.1 Migraine without aura and without status migrainosus, not intractable G43.009 Status migrainosus presence: without status migrainosus Intractability: not intractable Orthostatic hypotension I95.1 Vertigo R42 Activity intolerance R68.89
[2025-04-14 13:41] VITALS: BP 100/80; PULSE 78; O2SAT 97
--- OUTSIDE RECORDS SUMMARY | 2025-04-14 17:11 | XMS_ITS | Data Portability ---
Author Organization [facility], [address] Address [address] [place] [address] Care Team Providers Care Network Operations Project Manager Name Role Phone [facility] Primary Care Pr sharoner Assessment No assessment recorded. Plan of Treatment Reminders Order Date Submit Date Provider Last Modified By Organization Details Last Modified Time Details Appointments None recorded. Lab SARS CoV 2 RNA (COVID-19), QL, vehicle service agent-PCR, respiratory specimen 2022 023 [facility], [address] [place] [address], [place], [address], 3 18:05:52 urinalysis, dipstick 2022 023 [address], [address] [place], [address], 3 18:58:06 SARS CoV 2 (COVID-19) Ag, QL, IA, upper respiratory specimen 2022 023 [email or web address] [address], [address] [place], [address], 3 18:58:08 rapid flu (A+B) 2022 023 [email or web address] [address], [address] [place], [address], 3 19:06:24 culture, urine 2022 023 [facility] ([place]), [address] [facility], [place], [address], 3 06:06:22 Referral None recorded. Procedures None recorded. Surgeries None recorded. Imaging None recorded. Medication Orders cephalexin 500 mg capsule 2023 024 REIN[facility]DS [id number], [address], [place], [id number], 4 09:38:15 Florastor 250 mg capsule 2022 023 [email or web address] [facility][id number], [address] [place], [address], 4 09:14:37 Imodium Multi-Sympt om Relief 2 mg-125 mg tablet 2022 023 [email or web address] [facility]0769, [address] [place] [address], [address], 4 09:16:25 ondansetron 4 mg disintegrat ing tablet 2022 023 [id number], [address] [place] [address], [address], 3 18:58:08 Patient TargetsNo targets recorded. Patient Instructions Encounter Date Encounter Id Patient Instructions Last Modified By Organization Details Last Modified Time 05/09/2023 [id number] diarrhea: care instructions [email or web address] Not available 05/09/2023 18:58:03 bland diet Not available 05/09 18:58:03 diarrhea: care instructions [email or web address] Not available 05/09/2023 18:58:03 Based on your [...] due to infections and are self-limited. Acute 14 days or fewer in duration Persistent diarrhea more than 14 but fewer than 30 days in duration Chronic more than 30 days in duration Diarrhea not related to an infection can occur as a side effect of antibiotics or other drugs, food allergies, gastrointestinal diseases such as inflammatory bowel disease, and other diseases. The following are my recommendations to help with your symptoms: 1. Drink adequate fluids If you have mild to moderate diarrhea, you can usually be treated at home by drinking extra fluids. The fluids should contain water, salt, and sugar. Avoid Gatorade however, but Pedialyte is ok. 2. Diet There is no particular food or group [...] may also be eaten. 3. Preventing spread Adults with diarrhea should be cautious to [...] You require hospitalization Thank you for using [employer] today, Please feel free to contact our office if you have any questions or concerns. [email or web address] Not available 05/09/2023 18:58:45 05/13/2023 [id number] diarrhea: care instructions Not available 05/13/2023 17:17:31 viral infections : care instructions [email or web address] Not available 05/13/2023 17:17:31 Since your diarr [...] shaking chills, chest pain, shortness of breath. [email or web address] Not available 05/14/2023 20:14:47 04/30/2024 [id number] cellulitis: care instructions [email or web address] Not available 04/30/2024 09:38:06 Reason for Referral None Reported. Results Created Date Observation Date Name Description Value Unit Range Abnormal Flag Note LastModifiedBy Organization Detail LastModifiedTime 05/09/2005/12/2023 URINE CULTU RE, BILLI NE urine culture, routine FINAL REPORT Not Available [facility] ([facility]) [address] [facility], [place], [address], 05/12/2023 06:06:22 05/09/2005/12/2023 URINE CULTU RE, BILLI NE result 1 COMMEN T Cultu re shows less than 10,00 0 colon y formi ng units of bacte mirtha per jon liter of urine . This colon y count is not gener ally consi dered to be clini jose signi fican t. Not Available [facility] ([facility]) [address] [facility], [place], [address], 05/12/2023 06:06:22 05/09/2005/09/2023 rapid flu (A+B) Unknown Analyte negati ve Not Available [address] [place], [address], 05/09/2023 18:50:34 05/09/20 23 05/09/2023 rapid flu (A+B) Unknown Analyte negati ve Not Available [address] [place], [address], 05/09/2023 18:50:34 05/09/2005/09/2023 urina lysis , dipst ick Unknown Analyte Normal = light yellow Not Available [address] [place], [address], 05/09/2023 18:25:41 05/09/2005/09/2023 urina lysis , dipst ick Unknown Analyte Yellow Not Available [address] [place] [address] [address] [place], [address], 05/09/2023 18:25:41 05/09/2005/09/2023 urina lysis , dipst ick Unknown Analyte Normal = clear Not Available [address] [place], [address], 05/09/2023 18:25:41 05/09/2005/09/2023 urina lysis , dipst ick Unknown Analyte Clear Not Available [address] [place] [address] [address] [place], [address], 05/09/2023 18:25:41 05/09/2005/09/2023 urina lysis , dipst ick Unknown Analyte Normal = negati ve Not Available [address] [place], [address], 05/09/2023 18:25:41 05/09/2005/09/2023 urina lysis , dipst ick Unknown Analyte Negati ve Not Available [address] [place], [address], 05/09/2023 18:25:41 05/09/2005/09/2023 urina lysis , dipst ick Unknown Analyte Normal = Negati ve Not Available [address] [place], [address], 05/09/2023 18:25:41 05/09/2005/09/2023 urina lysis , dipst ick Unknown Analyte Negati ve Not Available [address] [place], [address], 05/09/2023 18:25:41 05/09/2005/09/2023 urina lysis , dipst ick Unknown Analyte Normal = Negati ve Not Available [address] [place], [address], 05/09/2023 18:25:41 05/09/2005/09/2023 urina lysis , dipst ick Unknown Analyte Negati ve Not Available [address] [place], [address], 05/09/2023 18:25:41 05/09/2005/09/2023 urina lysis , dipst ick Unknown Analyte Normal = 1.010, 1.015, 1.020 Not Available [address] [place], [address], 05/09/2023 18:25:41 05/09/2005/09/2023 urina lysis , dipst ick Unknown Analyte <=1.00 5 Not Available [address] [place], [address], 05/09/2023 18:25:41 05/09/2005/09/2023 urina lysis , dipst ick Unknown Analyte Normal = Negati ve Not Available [address] [place], [address], 05/09/2023 18:25:41 05/09/20 23 05/09/2023 urina lysis , dipst ick Unknown Analyte Trace- intact Not Available [address] [place], [address], 05/09/2023 18:25:41 05/09/2005/09/2023 urina lysis , dipst ick Unknown Analyte Normal = 6.5, 7.0, 7.5, 8.0 Not Available [address] [place], [address], 05/09/2023 18:25:41 05/09/2005/09/2023 urina lysis , dipst ick Unknown Analyte 6.0 Not Available [facility] [address] [place], [address], 05/09/2023 18:25:41 05/09/2005/09/2023 urina lysis , dipst ick Unknown Analyte Normal = Negati ve Not Available [address] [place], [address], 05/09/2023 18:25:41 05/09/2005/09/2023 urina lysis , dipst ick Unknown Analyte Negati ve Not Available [address] [place], [address], 05/09/2023 18:25:41 05/09/2005/09/2023 urina lysis , dipst ick Unknown Analyte Normal = 0.2, 1.0 Not Available [address] [place], [address], 05/09/2023 18:25:41 05/09/2005/09/2023 urina lysis , dipst ick Unknown Analyte 0.2 E.U./d L Not Available [address] [place], [address], 05/09/2023 18:25:41 05/09/2005/09/2023 urina lysis , dipst ick Unknown Analyte Normal = Negati ve Not Available [address] [place], [address], 05/09/2023 18:25:41 05/09/20 23 05/09/2023 urina lysis , dipst ick Unknown Analyte Negati ve Not Available [address] [place], [address], 05/09/2023 18:25:41 05/09/2005/09/2023 urina lysis , dipst ick Unknown Analyte Normal = Negati ve Not Available [address] [place], [address], 05/09/2023 18:25:41 05/09/2005/09/2023 urina lysis , dipst ick Unknown Analyte Negati ve Not Available [address] [place], [address], 05/09/2023 18:25:41 05/09/20 23 05/09/2023 SARS CoV 2 (COVI D-19) Ag, QL, IA, upper respi rator y speci men Unknown Analyte negati ve Not Available [address] [place], [address], 05/09/2023 18:25:52 05/13/20 23 05/14/2023 SARS- COV-2 [...] in this assay . Not Available [facility] ([facility]) [address] [facility], [place], [address], 05/14/2023 18:05:52 Result Notes None recorded. Problems Name Problem SNOMED Code Status Onset Date Resolution Date Notes Provider Name and Address Organization Details Recorded Time Lactose factor 62389578 Active 2022 Kate hamm, PA - [facility] 18:31:17 Anxiety 61310100 Active 2022 Kate hamm, PA - [facility] 18:31:30 Osteoporosis 61560493 Active 2022 Kate hamm, PA - [facility] 18:31:47 Depressive disorder 31786332 Active 2022 Kate hamm, PA - [facility] 18:31:57 Irritable bowel syndrome 17927568 Active 2022 Kate hamm, PA - [facility] 3 18:32:12 Kidney disease 09448573 Active 2022 Kate hamm, PA - [facility] 3 18:32:24 Hypothyroidism 64960970 Active 2022 Kate hamm, PA - [facility] 3 18:32:44 Arthritis 2231094 Active 2022 Kate hamm, PA - [facility] 3 18:33:14 Hyperlipidemia 09864459 Active 2022 Kate hamm, [facility] - [facility] [...] Name and Address Organization Details Recorded Time 207137 Reglan medicatio n other Not available Not available 05/09/2023 9230 RxNorm Hyper Yeni hamm, PA - [facility] 4 09:14:02 481457 prednison e medicatio n myalgias (muscle pain) [...] saturation in Arterial blood by Pulse oximetry Pain severity - 0-10 verbal numeric rating [Score] - Reported Respiratory rate Systolic And Diastolic Provider Name and Address Organization Details Last Updated DateTime 4 162.56 cm 23.2 kg/m2 89362.9 7 g 98.1 [degF] 51 /min 97 % 97 % 7 16 /min 102/53 mm[Hg] Yeni Dhillon PA - [facility] 4 09:23:55 Date Recorded Body height Body mass index (BMI) Body weight Pain severity - 0-10 verbal numeric rating [Score] - Reported Oxygen saturation Oxygen saturation in Arterial blood by Pulse oximetry Heart rate Respiratory rate Body temperature Systolic And Diastolic Provider Name and Address Organization Details Last Updated DateTime 3 162.56 cm 22.7 kg/m2 52780.1 9 g 7 97 % 97 % 61 /min 19 /min 97.4 [degF] 118/63 mm[Hg] Kate Spears PA - [facility] 3 18:26:19 Date Recorded Body height Body mass index (BMI) Body weight Body temperature Heart rate Respiratory rate Oxygen saturation Oxygen saturation in Arterial blood by Pulse oximetry Systolic And Diastolic Provider Name and Address Organization Details Last Updated DateTime 3 162.56 cm 22.7 kg/m2 59304.1 9 g 97.8 [degF] 50 /min 16 /min 98 % 98 % 126/72 mm[Hg] Gretchen Buenrostro PA - [facility] 3 16:38:26 Social History Question Answer Notes LastModified by Organizat ion Details LastModified Time Tobacco Smoking Status Current Every Day Smoker Kate hamm PA - [facility] 05/09/2023 18:34:53 What Is The Highest Grade Or Level Of School You Have Completed Or The Highest Degree You Have Received? [id number] Information not available 05/09/2023 Have You Had A Flu Shot This Season? No Information not available 04/30/2024 If No, Would You Like A Flu Shot Today? No [email or web address] Information not available 05/09/2023 Have You Had Direct Contact, Or Contact During Intimacy, With Monkeypox Rash, Scabs, Or Body Fluids From A Person With Monkeypox? No [email or web address] Information not available 05/09/2023 What Was The Date Of Your Most Recent Tobacco Screening? 04/30/2024 [email or web address] Information not available 04/30/2024 What Is Your Current Pack Years? 10packyears [email or web address] Information not available 05/09/2023 What Is Your Relationship Status? [email or web address] Information not available 05/09/2023 How Much Tobacco Do You Smoke? 1 PPW [email or web address] Information not available 05/09/2023 Have You Recently Traveled Abroad? No [email or web address] Information not available 05/09/2023 Are You Currently In School? No [email or web address] Information not available 05/09/2023 Sex: Unknown Functional Status Question Answer Note LastModified by Organizat ion Details LastModified Time Do you use any illicit or recreational drugs? No [email or web address] Information not available 05/09/2023 Do you or have you ever used any other forms of tobacco or nicotine? No Information not available 05/09/2023 What is your level of alcohol consumption? None [email or web address] Information not available 05/09/2023 Are you currently employed? No [email or web address] Information not available 05/09/2023 Mental Status None recorded. Family History Relationship Description Onset Age of this Age Resolved Age Notes LastModified by Organization Details LastModified Time Father No current problems or disability [email or web address] Not available 05/09 18:33:46 Mother No current problems or disability [email or web address] Not available 05/09 18:33:46 Medical History No medical history recorded. Gynecological History Statement/Question Response Is there any chance of ? No LMP N/A Obstetrics History GPAL:G 0 P 0 0 0 0 Immunizations Vaccine Type Date Status Note Provider Nam e and Address Organization Details Recorded Time Influenza, MDCK, quadrivalent, PF 8 completed Kate Spears null, [facility] - [facility] [...] dose or 50 mcg/0.25mL dose 1 completed Kaet Spears null, PA - [facility] 05/09/2023 [...] 50 mcg/0.5 mL 3 completed FATOU [facility] 04/30/2024 09:23:59 Past Encounters Encounter ID Performer Location Encounter Start Date Encounter Closed Date Diagnosis/Indication Diagnosis SNOMED-CT Code Diagnosis ICD10 Code Diagnosis IMO Codes Diagnosis Note [id number] [address] [facility] [address] [place] [address] 02/18/2017 18:20:24 02/18/2017 18:59:56 [id number] FATOU PANDYA [address] [facility] [address] [place] [address] 05/09/2023 17:15:06 05/09/2023 19:13:41 Increased frequency of urination 415033156 R35.0 Diarrhea 85575908 R19.7 Nausea 247620059 R11.0 Upper resp iratory infection 46876553 J06.9 [id number] Maria Victoria Palmer MD [address] [facility] [address] [place] [address] 05/13/2023 15:23:04 05/13/2023 17:19:07 Diarrhea 50491936 R19.7 Viral syndrome 342354153 B34.9 [id number] Cricket Morrow DO [address] [facility] [address] [place] [address] 04/30/2024 08:56:55 04/30/2024 09:40:31 Cellulitis 385861255 L03.90 PE consistent with Cellulitis will Rx [...] ID Guarantor Name 04/30/2024 1 [place] B-[place]: [employer] Alicia Franklin Jelly [id number] Alicia Nafisa 07/13/2024 2 [place] [facility] Alicia Reaves [id number] Alicia Nafisa 04/30/2024 1 [facility] (MEDICAID HMO) [id number] Alicia Reaves [id number] [facility] Notes Date Note Type Note Provider Name and Address Organization Details Recorded Time 3 text/html Urinary Complaint FemaleReported by Patient CongestionReported by [email or web address] y.o well hydrated and nontoxic looking patient [...] fever, abd pain, weight loss or dysuria. Diarrhea UCReported by Patient FATOU PANDYA [address] [place], [address], PA - [facility] 05/13/2023 22:38:15 3 text/html CongestionNewReported by PatientHPIFor location, patient reportsbilateral. For associated symptoms, patient reportsrunny noseandmild. For timing, patient reportsconstantandwaxes and wanes. For quality, (no sinus pressure.).63 year old female presenting with request t [...] Victoria Palmer MD [address] [place], [address], [place] PA - [facility] 05/14/2023 20:15:14 4 text/html ROS as noted in the HPI 64 yo female c/o L wrist pain x 2 d + red and swollen no known h/o traumano rashno bruisingno numbnessno tinglingno weaknessno f/c/n/v tried ice RHD Cricket Morrow DO [address] [place], [address], [place] PA - [facility] 04/30/2024 09:48:28 OBGyn Episode No OBEpisode recorded.
--- OUTSIDE RECORDS SUMMARY | 2025-04-14 17:11 | XMS_ITS | Clinical Summary ---
Author Organization [facility] Address [address] [place] [address] Care Team Providers Care Sales Counselor Name Role Phone Sony Herrera MD Primary Care Provider [phone] Social History Tobacco Use Types Packs/Day Years [...] 2009 Zoster (Shingrix) (1 of 2) 2009 Bone Density 2024 COVID-19 Vaccine (1 - 2024-2 6 season) 2025 Influenza (#1) 2025 RSV (1 - 1-dose 75+ series) 2034 HPV Vaccine (No Doses Required) Completed Hep A Aged Out No longer eligi [...] Smear Discontinued Zoster (Zostavax) Discontinued Care Teams Sales Counselor Relationship Specialty Start Date End Date Sony Herrera MD [address] [facility] [address] [place] [address] PCP - General 01/27/23
--- OUTSIDE RECORDS SUMMARY | 2025-04-14 17:11 | XMS_ITS ---
Author Name [facility] Organization Unknown Encounters Encounter Type Encounter Reason Primary Diagnosis Location Date Ambulatory [facility] 06/2021 Care Team Organization Name Specialty Phone Email Start Date End Da te [facility] Javier Cardoza Primary Care 02/21/2022 02/26/2024
--- OUTSIDE RECORDS SUMMARY | 2025-04-14 17:11 | XMS_ITS | Data Portability ---
Author Organization [place] - [facility], Allergy Address [address] [address] Assessment No assessment recorded. Plan of Treatment Reminders Order Date Submit Date Provider Last Modified By Organization Details Last Modified Time Details Appointments Hearing Test First 2024 02:00P M Hearing Test Not available Not available Not available Establish ed 15 2024 01:00P M VENITA FAUSTIN MD Not available Not available Not available Lab None recorded. Referral None recorded. Procedures None recorded. Surgeries None recorded. Imaging None recorded. Medication Orders None recorded. Patient TargetsNo targets recorded. Patient InstructionsNo instructions [...] Name and Address Organization Details Recorded Time Tobacco user 282333092 Active 2020 Tobacco use; Note: Date Diagnosed : 03/20/2021 2:13 PM (Z72.0) Not Available [facility] 4 02:59:16 Chronic serous otitis media of right ear 572882465 Active 2020 Chronic serous otitis media, right ear; Note: Date Diagnosed : 03/20/2021 11:24 AM (H65.21) Not Available [facility] 4 02:59:14 Disorder of left Eustachia n tube 43366390190 97589 Active 2021 Other specified disorders of Eustachia n tube, left ear; Note: Date Diagnosed : 07/17/2021 2:11 PM (H69.82) Not Available [facility] 4 02:59:16 Headache 89866701 Active 2021 Headache, unspecifi ed; Note: Changed from R51 to R51.9 (04/03/20 12:08 PM) , Date Diagnosed : 03/28/2022 2:27 PM (R51) Not Available [facility] 4 02:59:17 Bilateral disorder of Eustachia n tubes 96721889165 92028 Active 2021 Other specified disorders of Eustachia n tube, bilateral ; Note: Date Diagnosed : 03/28/2022 2:27 PM (H69.83) Not Available [facility] 4 02:59:14 Fatigue 24935880 Active 2021 Fatigue NOS; Note: Date Diagnosed : 03/28/2022 2:27 PM (R53.83) Not Available [facility] 4 02:59:16 Jaw pain 778777252 Active 2021 Jaw pain; Note: Date Diagnosed : 03/28/2022 2:27 PM (R68.84) Not Available [facility] 4 02:59:17 Dizziness and giddiness 708795003 Active 2022 Dizziness and giddiness ; Note: Date Diagnosed : 01/23/2023 3:39 PM (R42) Not Available [facility] 4 02:59:16 Problem Notes None recorded. Procedures Surgical History Date Name Laterality Status Provider Name and Address Organization Details Recorded Time 4 Air & Speech Audio with Tymps - 07043, 80902 & 18169 cancelled PAT SANTIAGO [address] [facility],[address], [address], [facility] - [facility] 12/12/2023 16:35:00 cardiac pacemaker procedure completed VENITA FAUSTIN MD [address] [place] [address],[address], [address], [facility] 12/12/2023 16:48:15 Imaging Results None recorded. Procedure Notes None recorded. Medical Equipment None Reported. Allergies Allergen ID Allergen Name Allergen Category Reaction Reaction Severity Criticality Documentation Date Start Date Code Code System Note Provider Name and Address Organization Details Recorded Time [id number] Reglan medicatio n other Not available Not available 11/04/2023 9230 RxNorm React ion: Unkno wn; Not Available [facility] 4 01:07:23 047526 prednison e medicatio n other Not available Not available 11/04/2023 8640 RxNorm React ion: Unkno wn; Not Available [facility] 4 01:07:24 948530 lactose Not available other Not available Not available 11/04/2023 6211 RxNorm React ion: Unkno wn; Not Available [facility] 01:[facility]25 Medications Name Sig Start Date Stop Date Status Note LastModified by Organization Details LastModified Time neomycin- polymyxin -hydrocor t 3.5 mg/mL-10, 000 unit/mL-1 % ear solution INSTILL 4 DROPS INTO THE RIGHT EAR 3 TIMES DAILY FOR 7 DAYS 01/02 completed Not Available Not Available Not Available oxcarbaze pine 150 mg tablet TAKE 1/2 TABLET TWICE A DAY BY MOUTH active Not Available Not Available No t Available cetirizin e 10 mg tablet 2023 active Medicati on ID: [id number] D uration Value: 90 Brand Name: cetirizi ne Send Method: E-Prescr ibed Sub s Allowed: subs OK Speci al Instruct ion: TAKE 1 TABLET BY MOUTH EVERY DAY Medi cationGe nericNam e: cetirizi ne Not Available Not Available Not Available citalopra m 10 mg tablet TAKE 1 TABLET BY MOUTH ONCE A DAY active Not Available Not Available No t Available sucralfat e 1 gram tablet TAKE 1 TABLET BY MOUTH 3 TIMES A DAY BEFORE MEALS AND BEDTIME active Not Available Not Available No t Available ondansetr on HCl 4 mg tablet TAKE 1 TO 2 TABLETS BY MOUTH EVERY 6 TO 8 HOURS NEEDED FOR NAUSEA AND VOMITING active Not Available Not Available No t Available famotidin e 40 mg tablet TAKE 1 TABLET BY MOUTH EVERYDAY AT BEDTIME active Not Available Not Available No t Available clonazepa m 1 mg tablet TAKE 1 TABLET BY MOUTH THREE TIMES A DAY NEEDED active Not Available Not Available No t Available omeprazol e 40 mg capsule,d elayed release TAKE 1 CAPSULE BY MOUTH EVERY DAY IN THE MORNING active Not Available Not Available No t Available amoxicill in 500 mg tablet TAKE 1 TABLET BY MOUTH TWICE A DAY FOR 7 DAYS 01/02 completed Not Available Not Available Not Available levothyro xine 75 mcg tablet TAKE 1 TABLET BY MOUTH EVERY DAY active Not Available Not Available No t Available citalopra m 20 mg tablet TAKE 1 TABLET BY MOUTH EVERY DAY active Not Available Not Available No t Available famotidin e 20 mg tablet TAKE 1 TABLET TWICE A DAY AVOID FOOD & DRINK FOR 10MIN AFTER EACH DOSE active Not Available Not Available No t [...] MOUTH 2 TIMES A DAY NEEDED FOR DIZZINES S FOR 30 DAYS active Not Available Not Available No t Available ferrous sulfate 325 mg (65 mg [...] mg tablet 01/23 completed Medicati on ID: [id number] B rand Name: sertrali ne Send Method: E-Prescr ibed Sub s Allowed: subs OK Medic ationGen ericName : sertrali ne Not Available Not Available Not Available Vitamin C 250 mg tablet TAKE 1 TABLET BY MOUTH EVERY DAY active Not Available Not Available No t Available ondansetr on 4 mg disintegr ating tablet TAKE 1 TABLET BY MOUTH EVERY 8 HOURS NEEDED FOR NAUSEA/V OMITING active Not Available Not Available No t Available fluticaso ne propionat e 50 mcg/actua tion nasal spray,senia pension 01/23 completed Medicati on ID: [id number] B rand Name: fluticas one propiona te Send Method: E-Prescr ibed Sub s Allowed: subs OK Medic ationGen ericName : fluticas one propiona te Not Available Not Available Not Available fludrocor tisone 0.1 mg tablet 12/11 completed Medicati on ID: [id number] B rand Name: fludroco rtisone Send Method: E-Prescr ibed Sub s Allowed: subs OK Medic ationGen ericName : fludroco rtisone Medicati on ID: [id number] B rand Name: fludroco rtisone Send Method: E-Prescr ibed Sub s Allowed: subs OK Medic ationGen ericName : fludroco rtisone Not Available Not Available Not Available dicyclomi ne 10 mg capsule TAKE 1 CAPSULE BY MOUTH FOUR TIMES A DAY NEEDED IBS active Not Available Not Available No t Available ipratropi um bromide 21 mcg (0.03 %) nasal spray 2023 active Medicati on ID: [id number] B rand Name: ipratrop ium bromide Send [...] Not Available Not Available No t Available diclofena c 1 % topical gel PLEASE SEE ATTACHED FOR DETAILED DIRECTIO NS active Not Available Not Available No t Available sodium,po tassium,m ag sulfates 17.5 gram-3.13 gram-1.6 gram oral soln SEE COLONOSC OPY INSTRUCT IONS. active Not Available Not Available No t Available Linzess 145 mcg capsule TAKE 1 CAPSULE BY MOUTH DAILY,X3 0 DAYS,INS TR:TAKE 30 MINUTES BEFORE BREAKFAS T active Not Available Not Available No t Available riboflavi n (vitamin B2) 400 mg tablet TAKE 1 TABLET BY MOUTH EVERY DAY active Not Available Not Available No t Available Xiidra 5 % eye drops in a dropperet te INSTILL 1 DROP INTO BOTH EYES TWICE A DAY DIRECTED active Not Available Not Available No t Available Ubrelvy 100 mg tablet TAKE 1/2 TO 1 TABLET BY MOUTH AT ONSET OF MIGRAINE ONCE NEEDED. MAY REPEAT DOSE IN 2 HOURS. active Not Available Not Available No t Available Vitals Date Recorded Body height Body mass index (BMI) Body weight Provider Name and Address Organization Details Last Updated DateTime 12/12/2023 162.56 cm 23.5 kg/m2 06698.15 g Wanda Cuellar [place] - [facility] 12/12/2023 16:39:53 Social History None recorded. Functional [...] ICD10 Code Diagnosis IMO Codes Diagnosis Note [id number] VENITA FAUSTIN MD [facility] [address] [place] [address] 12/12/2023 16:41:28 12/12/2023 16:49:13 Bilateral disorder of Eustachian tubes [id number] H69.83 63-year-ol d female presents today after tube placement. She still has some discomfort . Thankfully , audiogram showed complete normalizat ion of hearing. Follow-up 6 months. Audiologic al evaluation results:Ri ght ear:Normal hearing with excellent word recognitio n. Tympanomet ry:Right Ear:Type B with large volume Health Concerns Section Related Observation LastModified by Organization Detai ls LastModified Time None Recorded Concern Status LastModified by Organization Details LastModified Time None Recorded Advance Directives Directive None Recorded Payers Insurance Date Sequence Insurance Name Policy Number Policy West Covered Member ID West Member ID Guarantor Name 01/05/2025 1 [place] [employer] Alicia Reaves [id number] Alicia Reaves 01/05/2025 2 [place] [facility] Alicia Reaves [id number] Alicia Reaves 11/19/2024 1 [facility] (MEDICAID HMO) [id number] Alicia Reaves [id number] Alicia Reaves Notes Date Note Type Note [...] small bowel obstruction,Hypoth yroidism. VENITA FAUSTIN MD [address] [place] [address], [place], [address], [facility] - [facility] 12/12/2023 16:48:26 OBGyn Episode No OBEpisode recorded.
== END 2025-04-14 15:07 | disposition home or self-care (01) ==
LOC: HO.HSMS 13:34
PROVIDERS: PCP Internal Medicine; Visit Provider Nurse Practitioner Family
DX: R25.1 Tremor, unspecified (principal); G43.009 Migraine without aura, not intractable, without status migrainosus; I95.1 Orthostatic hypotension; R42 Dizziness and giddiness; R68.89 Other general symptoms and signs
CPT/HCPCS: 99214; G2211

== ENCOUNTER → 2025-04-14 13:33 | Outpatient (BNVA) | payer MEDICARE, MEDICAID, SELFPAY | PROVIDERS: PCP Internal Medicine; Visit Provider Nurse Practitioner Family | DX: R42 Dizziness and giddiness (principal); I95.1 Orthostatic hypotension; G43.009 Migraine without aura, not intractable, without status migrainosus; R68.89 Other general symptoms and signs; R25.1 Tremor, unspecified | CPT/HCPCS: 99212 ==